=== PATIENT | female | born 1965 | race African-American/Black ===

== ENCOUNTER 2017-03-07 00:33 | Emergency (ER) | payer OTHER, SELFPAY ==
--- NOTE | 2017-03-07 07:48 | RAD ---
RIGHT SHOULDER THREE VIEWS: History: Fall, right shoulder pain. FINDINGS: No degenerative change in the acromioclavicular joint. No fracture, dislocation or bony destruction identified. POS: SAMANTHA
== END 2017-03-07 01:36 | disposition home or self-care (01) ==
LOC: ERS 00:33
DX: S40.011A Contusion of right shoulder, initial encounter (principal); I10 Essential (primary) hypertension; W19.XXXA Unspecified fall, initial encounter

== ENCOUNTER 2017-06-27 22:45 | Emergency (ER) | payer SELFPAY | END 2017-06-28 00:09 | disposition home or self-care (01) | LOC: ERS 22:45 | DX: R50.9 Fever, unspecified (principal); I10 Essential (primary) hypertension; Z79.899 Other long term (current) drug therapy | CPT/HCPCS: 99283 ==

== ENCOUNTER 2017-10-21 23:07 | Observation (INO) | payer SELFPAY ==
[2017-10-21 23:45] LABS: #Basophils 0.1 thou/uL (0.0-0.2); #Eosinphils 0.1 thou/uL (0.0-0.7); #Lymphocytes 2.7 thou/uL (1.20-3.40); #Monocytes 0.5 thou/uL (0.11-0.59); #Neutrophils 4.6 thou/uL (1.40-6.50); %Basophils 1.1 % (0.0-1.0); %Eosinophils 1.6 % (0.0-10.0); %Lymphocytes 33.9 % (21.0-51.0); %Monocytes 5.7 % (0.0-10.0); %Neutrophils 57.6 % (42.0-75.0); Hemoglobin 11.7 g/dL (12.0-16.0); Mean Corpuscular HGB CONC 33.5 g/dL (32.0-36.0); Mean Corpuscular Hemoglobin 28.2 pg (27.0-31.0); Mean Corpuscular Volume 84.1 fl (81.0-99.0); Platelet Count 346 thou/uL (130-400); RBC Distribution Width 13.7 % (11.5-14.5); Red Blood Cell (RBC) Count 4.15 mill/uL (4.20-5.40)
--- NOTE | 2017-10-21 23:47 | RAD ---
PORTABLE CHEST: Date: 10/21/17 PROVIDED CLINICAL HISTORY: Chest pain. FINDINGS: Comparison with 08/07/10. Cardiac silhouette appears enlarged. Lungs appear clear. No pleural fluid or pneumothorax apparent. IMPRESSION: Cardiomegaly without evidence for an acute cardiopulmonary process. POS: RAVEN
[2017-10-21 23:53] LABS: PTT 28.5 SEC (22.9-36.1); Prothrombin Time 13.6 SEC (12.0-14.7)
[2017-10-22 00:13] LABS: ALT (SGPT) 17 U/L (8-55); AST (SGOT) 14 U/L (5-34); Albumin 3.9 g/dL (3.5-5.0); Alkaline Phosphatase 88 U/L (40-150); Anion Gap 10 mmol/L (10-20); BUN (Urea Nitrogen) 15 mg/dL (7.0-18.7); Bilirubin, Total 0.3 mg/dL (0.2-1.2); CK (CPK) 154 U/L (29-168); Calc. Creatinine Clearance 0 mL/min (70-130); Calcium 9.1 mg/dL (7.8-10.44); Carbon Dioxide 29 mmol/L (22-29); Chloride 105 mmol/L (98-107); Estimated GFR-MDRD 62; Globulin 3.1 g/dL (2.4-3.5); Glucose 101 mg/dL (70-105); Potassium 4.1 mmol/L (3.5-5.1); Sodium 140 mmol/L (136-145)
[2017-10-22 00:16] LABS: CKMB 1.7 ng/mL (0-6.6); Troponin I Less than 0.010 ng/mL (< 0.028)
[2017-10-22] MEDS ORDERED: Nitroglycerin 2% Ointment 1 INCH/1 GM Packet ONE (02:54)
[2017-10-22 02:56] LABS: Troponin I Less than 0.010 ng/mL (< 0.028)
[2017-10-22] MEDS ORDERED: Nitroglycerin 0.4 MG TAB (25 Tab Bottle) PO PRN (05:42)
[2017-10-22] MEDS ORDERED: Acetaminophen 325 MG TAB PO PRN (05:42)
[2017-10-22 05:46] LABS: Troponin I Less than 0.010 ng/mL (< 0.028)
[2017-10-22 06:16] LABS: Cardiac Risk 4.4 (Less than 4.5)
[2017-10-22 06:25] VITALS: BMI 56.0
--- NOTE | 2017-10-22 06:27 | HP ---
REASON FOR ADMISSION: Chest pain. HISTORY OF PRESENTING ILLNESS: The patient gives history of chest tightness from last . She has also had associated left hand paraesthesias. This has been ongoing off and on with each episode lasting 2-3 minutes. These episodes usually come on with mild exertion at home. Last night, she had another episode which was getting worse and patient tried taking 3 nitroglycerin sublingual with no relief. She is also burping a lot and tried taking Pepto-Bismol and Tums. As none of this helped her, she came to emergency room. No prior cardiac workup. Patient also states that she has been putting on weight from last year and a half after she moved to this area. PAST MEDICAL AND SURGICAL HISTORY: Hypertension, morbid obesity, tubal ligation. PERSONAL HISTORY: Does not abuse drugs. Drinks on social occasions. Does not smoke. She lives alone and is . She does private sitter job. FAMILY HISTORY: Father of cirrhosis in his 40s. Mother is living but has history of hypertension, diabetes, and coronary artery disease. CODE STATUS: FULL. Power of workers compensation attorney is her daughter, Ms. Meza. CURRENT MEDICATIONS: Aspirin 81 mg p.o. daily, Lopressor 25 mg twice daily, lisinopril 20 mg daily. ALLERGIES: ULTRAM. REVIEW OF SYSTEMS: The following complete review of systems was negative, unless otherwise mentioned in the HPI or below: Constitutional: Weight loss or gain, ability to conduct usual activities. Skin: Rash, itching. Eyes: Double vision, pain. ENT/Mouth: Nose bleeding, neck stiffness, pain, tenderness. Cardiovascular: Palpitations, dyspnea on exertion, orthopnea. Respiratory: Shortness of breath, wheezing, cough, hemoptysis, fever or night sweats. Gastrointestinal: Poor appetite, abdominal pain, heartburn, nausea, vomiting, constipation, or diarrhea. Genitourinary: Urgency, frequency, dysuria, nocturia. Musculoskeletal: Pain, swelling. Neurologic/Psychiatric: Anxiety, depression. Allergy/Immunologic: Skin rash, bleeding tendency. PHYSICAL EXAMINATION: GENERAL: The patient is a 52-year-old female who is currently not in any acute distress. VITAL SIGNS: Blood pressure 180/96, pulse 94 per minute, respiratory rate 18 per minute, temperature 98.7 degrees Fahrenheit, and saturating 96% on room air. NECK: Supple, no elevated JVD. EYES: Extraocular muscles intact. Pupils reacting to light. ORAL CAVITY: Mucous membranes are dry. No exudates or congestion. CARDIOVASCULAR SYSTEM: S1, S2 heard. Regular rhythm. RESPIRATORY SYSTEM: Air entry 2+ bilateral. No rales or rhonchi. ABDOMEN: Soft, bowel sounds heard. No tenderness, rigidity or guarding. EXTREMITIES: No peripheral edema or calf tenderness. VASCULAR SYSTEM: Peripheral pulses 1+ bilateral, no ischemic ulcerations or gangrene. CENTRAL NERVOUS SYSTEM: No gross focal deficits seen. Patient is alert, awake , oriented x3. PSYCHIATRIC SYSTEM: The patient's mood is euthymic. No hallucinations or delusions. IMAGING DATA AND LABORATORY DATA: EKG done shows normal sinus rhythm at 89 beats per minute. There are signs of LVH seen. White count of 8, hemoglobin and hematocrit 11 and 34, platelet count 346, MCV is 84 with 57% neutrophils. PT/INR, PTT, electrolytes and liver function tests are within normal limits. BUN is 15, creatinine 1.1. Troponin x2 is negative. Albumin is 3.9. Chest x- ray done shows mild cardiomegaly with no acute infiltrate. CLINICAL IMPRESSION AND PLAN: The patient will be under observation on telemetry for chest pain, rule out acute coronary syndrome. The patient is morbidly obese and weighs around 300 pounds and likely will need 2 day stress test. We will continue her on full dose aspirin, Lopressor, Pepcid for now. She will be kept n.p.o. for the stress test. Echo with 2D Doppler for LV function will be obtained. The patient has to start doing lifestyle modification or has to undergo bariatric surgery to prevent further morbidity from her obesity. BETO
[2017-10-22] MEDS ORDERED: Nitroglycerin 0.4 MG TAB (25 Tab Bottle) SL PRN (08:33)
[2017-10-22 08:59] LABS: Troponin I Less than 0.010 ng/mL (< 0.028)
[2017-10-22] MEDS ORDERED: Aspirin 325 MG TAB PO SCH (09:00)
[2017-10-22] MEDS ORDERED: Lisinopril 20 MG TAB PO SCH (09:00)
[2017-10-22] MEDS ORDERED: Metoprolol Tartrate 25 MG TAB PO SCH (09:00)
[2017-10-22] MEDS ORDERED: Enoxaparin Sodium 40 MG/0.4 ML SYRINGE SC SCH (09:00)
[2017-10-22] MEDS ORDERED: Famotidine 20 MG TAB PO SCH (09:00)
[2017-10-22] MEDS ORDERED: Lorazepam 2 MG/ML VIAL SLOW IVP SCH (12:30)
[2017-10-22] MEDS ORDERED: Regadenoson 0.4 MG/5 ML SYRINGE ONE (12:53)
--- NOTE | 2017-10-22 14:10 | NM ---
STRESS ONLY NUCLEAR MEDICINE MYOCARDIAL PERFUSION SCAN: DATE: 09/22/17. HISTORY: A 52-year-old female with chest pain. TECHNIQUE: SPECT imaging of the left ventricular myocardium is obtained during stress following the intravenous administration of 33 mCi Technetium 99m labeled sestamibi. FINDINGS: Left ventricular wall motion is normal. No perfusion defect is seen on stress-only imaging. EDV is 102 mL, ESV is 47 mL, and ejection fraction is 54%. IMPRESSION: Unremarkable stress-only myocardial perfusion scan. POS: RAVEN
[2017-10-22 16:03] VITALS: BP 138/67; TEMP 97.5
--- NOTE | 2017-10-22 22:37 | DIS ---
DATE OF ADMISSION: 10/22/2017 DATE OF DISCHARGE: 10/22/2017 CONDITION AT THE TIME OF DISCHARGE: Stable and improved. DISCHARGE DIAGNOSES: 1. Chest pain, noncardiac. 2. Acute coronary syndrome ruled out. 3. Hypertension. 4. Morbid obesity with a BMI of 56. 5. Hypertension. DISCHARGE MEDICATIONS: Remain the same as admission medication including metoprolol succinate 25 p.o . b.i.d., lisinopril 20 mg daily, sublingual nitroglycerin as needed. The patient is instructed to h ave discussed Toprol-XL twice dosing with her primary care physician as it is normally once a day med icine. She is also instructed to not take nitroglycerin as her chest pain is likely noncardiac. PROCEDURES DURING THE HOSPITAL: Nuclear medicine stress test, which is negative for any reversible i schemia or infarction. Estimated EF of 54%. HISTORY OF PRESENT ILLNESS: Ms. Parker is a 52-year-old female with past medical history of hyperten erika, who presented to the emergency room with complaints of chest pain. EKG and troponins were tren ded and were unremarkable. She was admitted for further risk stratification. She was given aspirin and continued on Lopressor. Please see admission history and physical for further details. HOSPITAL COURSE: The patient remained hemodynamically stable throughout the rest of her hospitalizat ion and asymptomatic. She did not have any events on the tele monitoring. Cardiac enzymes are negat shantell x4. She had a slightly elevated cholesterol at 223 and lifestyle modification were advised. She underwent a nuclear medicine stress test, which was negative, so she was discharged. PHYSICAL EXAMINATION: She was seen and examined prior to discharge. This morning include, VITAL SIGNS: Temperature 98, pulse of 80, respirations 16, saturating 96% on room air, blood pressur e 133/71. GENERAL: No acute distress, awake, alert, oriented x3. She has loudly snoring in the room and was e asily awoken. CHEST: Clear to auscultation bilaterally without any wheezing, rales, or rhonchi. Rhythm is regular without any murmur, rubs or gallops. At this time, dietary and lifestyle modification has been advised and the patient seems receptive. S he will be discharged under the care of primary care physician.
== END 2017-10-22 16:16 | disposition home or self-care (01) ==
LOC: ERS 23:07 → 2SW 10-22 06:05
PROVIDERS: ADMIT Internal Medicine; ATTEND Internal Medicine
DX: R07.89 Other chest pain (principal); I10 Essential (primary) hypertension; E66.01 Morbid (severe) obesity due to excess calories; Z68.43 Body mass index [BMI] 50.0-59.9, adult; Z88.8 Allergy status to other drugs, medicaments and biological substances; Z79.82 Long term (current) use of aspirin; Z79.899 Other long term (current) drug therapy; Z98.890 Other specified postprocedural states; Z82.49 Family history of ischemic heart disease and other diseases of the circulatory system
CPT/HCPCS: 36415; 71045; 78452; 80053; 80061; 82550; 82553; 83880; 84484; 85025; 85610; 85730; 93005; 93017; 96374; A9500; G0378; J2060; J2785

== ENCOUNTER 2017-10-28 14:49 | Emergency (ER) | payer SELFPAY ==
[2017-10-28] MEDS ORDERED: Labetalol HCl 100 MG/20 ML VIAL ONE (15:06)
[2017-10-28 15:25] LABS: #Eosinphils 0.1 thou/uL (0.0-0.7); #Lymphocytes 1.8 thou/uL (1.20-3.40); #Monocytes 0.3 thou/uL (0.11-0.59); #Neutrophils 3.6 thou/uL (1.40-6.50); %Basophils 0.7 % (0.0-1.0); %Eosinophils 1.2 % (0.0-10.0); %Lymphocytes 31.1 % (21.0-51.0); %Neutrophils 62.1 % (42.0-75.0); Hemoglobin 12.2 g/dL (12.0-16.0); Mean Corpuscular Hemoglobin 27.8 pg (27.0-31.0); Mean Corpuscular Volume 84.5 fl (81.0-99.0); Platelet Count 350 thou/uL (130-400); RBC Distribution Width 13.6 % (11.5-14.5); Red Blood Cell (RBC) Count 4.37 mill/uL (4.20-5.40); White Blood Cell (WBC) Count 5.8 thou/uL (4.8-10.8)
[2017-10-28 15:52] LABS: ALT (SGPT) 21 U/L (8-55); AST (SGOT) 17 U/L (5-34); Albumin 4.2 g/dL (3.5-5.0); Alkaline Phosphatase 96 U/L (40-150); Anion Gap 14 mmol/L (10-20); BUN (Urea Nitrogen) 14 mg/dL (7.0-18.7); Bilirubin, Total 0.4 mg/dL (0.2-1.2); CK (CPK) 208 U/L (29-168); Calc. Creatinine Clearance 0 mL/min (70-130); Calcium 9.4 mg/dL (7.8-10.44); Carbon Dioxide 24 mmol/L (22-29); Chloride 104 mmol/L (98-107); Estimated GFR-MDRD 76; Globulin 3.5 g/dL (2.4-3.5); Glucose 113 mg/dL (70-105); Potassium 4.1 mmol/L (3.5-5.1); Protein, Total 7.7 g/dL (6.0-8.3); Sodium 138 mmol/L (136-145)
[2017-10-28 15:56] LABS: CKMB 2.4 ng/mL (0-6.6); Troponin I Less than 0.010 ng/mL (< 0.028)
[2017-10-28 18:19] LABS: Troponin I Less than 0.010 ng/mL (< 0.028)
== END 2017-10-28 18:36 | disposition home or self-care (01) ==
LOC: ERS 14:49
DX: R07.2 Precordial pain (principal); I10 Essential (primary) hypertension; Z79.899 Other long term (current) drug therapy
CPT/HCPCS: 36415; 80053; 82550; 82553; 84484; 85025; 85379; 93005; 96374

== ENCOUNTER 2018-10-08 02:52 | Observation (INO) | payer SELFPAY ==
[2018-10-08] MEDS ORDERED: Ondansetron ODT 4 MG TAB ONE (03:00)
[2018-10-08 03:21] LABS: #Basophils 0.1 thou/uL (0.0-0.2); #Eosinphils 0.2 thou/uL (0.0-0.7); #Lymphocytes 2.8 thou/uL (1.20-3.40); #Monocytes 0.4 thou/uL (0.11-0.59); #Neutrophils 3.6 thou/uL (1.40-6.50); %Basophils 1.2 % (0.0-1.0); %Eosinophils 2.5 % (0.0-10.0); %Lymphocytes 39.6 % (21.0-51.0); %Neutrophils 50.8 % (42.0-75.0); Hemoglobin 12.2 g/dL (12.0-16.0); Mean Corpuscular HGB CONC 32.2 g/dL (32.0-36.0); Mean Corpuscular Hemoglobin 27.7 pg (27.0-31.0); Mean Corpuscular Volume 86.1 fL (78.0-98.0); Mean Platelet Volume 7.6 fL (7.4-10.4); Platelet Count 276 thou/uL (130-400); RBC Distribution Width 13.6 % (11.5-14.5); Red Blood Cell (RBC) Count 4.42 mill/uL (4.20-5.40)
[2018-10-08] MEDS ORDERED: Nitroglycerin 2% Ointment 1 INCH/1 GM Packet ONE ×2 (03:30→03:33)
[2018-10-08] MEDS ORDERED: Aspirin Chewable 81 MG TAB ONE (03:33)
[2018-10-08 03:40] LABS: ALT (SGPT) 14 U/L (8-55); AST (SGOT) 15 U/L (5-34); Albumin 4.2 g/dL (3.5-5.0); Alkaline Phosphatase 96 U/L (40-150); Anion Gap 12 mmol/L (10-20); BUN (Urea Nitrogen) 14 mg/dL (9.8-20.1); Bilirubin, Total 0.3 mg/dL (0.2-1.2); Calc. Creatinine Clearance 0 mL/min (70-130); Calcium 9.5 mg/dL (7.8-10.44); Carbon Dioxide 29 mmol/L (22-29); Chloride 103 mmol/L (98-107); Estimated GFR-MDRD 76; Glucose 110 mg/dL (70-105); Protein, Total 7.2 g/dL (6.0-8.3); Sodium 140 mmol/L (136-145)
--- NOTE | 2018-10-08 04:10 | RAD ---
XR Chest 1 View Portable HISTORY: Chest pain COMPARISON: 10/21/2017 study FINDINGS: Heart size is slightly enlarged. Mediastinal structures are unremarkable. The lungs are hansa ar of infiltrates. There are no signs of failure. IMPRESSION: Mild cardiomegaly.
[2018-10-08 04:28] LABS: CK (CPK) 217 U/L (29-168); Lipase 96 U/L (8-78)
[2018-10-08 05:52] VITALS: BMI 53.5
[2018-10-08 07:41] LABS: Troponin I Less than 0.010 ng/mL (< 0.028)
[2018-10-08] MEDS ORDERED: Regadenoson 0.4 MG/5 ML SYRINGE ONE (10:20)
[2018-10-08] MEDS ORDERED: Acetaminophen 325 MG TAB PO PRN (10:25)
[2018-10-08] MEDS ORDERED: Lorazepam 2 MG/ML VIAL SLOW IVP SCH (11:15)
[2018-10-08] MEDS ORDERED: Lorazepam 2 MG/ML VIAL ONE (11:22)
[2018-10-08 13:22] LABS: Troponin I Less than 0.010 ng/mL (< 0.028)
--- NOTE | 2018-10-08 14:40 | NM ---
Radionucleotide stress only myocardial perfusion scan with CT attenuation correction and SPECT imagin g Left ventricular wall motion evaluation and ejection fraction HISTORY: Chest pain. FINDINGS: Lexiscan protocol. There is homogeneous uptake of radiotracer throughout the left ventricul ar myocardium. No perfusion defects apparent. QGS analysis of gated SPECT images shows no focal wall motion abnormalities. Left ventricular ejectio n fraction calculated at 74%. IMPRESSION: Normal myocardial perfusion stress only exam. Normal LVEF.
[2018-10-08 16:11] VITALS: BP 129/74; TEMP 98.1
[2018-10-08] MEDS ORDERED: Famotidine 20 MG TAB PO SCH (21:00)
--- NOTE | 2018-10-09 02:32 | SS ---
DATE OF ADMISSION: 10/08/2018 DATE OF DISCHARGE: 10/08/2018 PRIMARY CARE PHYSICIAN: Dr. Duncan. CONSULTANTS: None. PROCEDURES: The patient had a chest x-ray which showed mild cardiomegaly. The patient also had stress test with nuclear medicine which showed normal myocardial perfusion with ejection fraction calculated at 74%. HOSPITAL COURSE: Ms. Parker is a 53-year-old female who presented to the emergency room for left upper chest and left arm pain, started several days ago after she was doing some heavy lifting and moving furniture around. The patient presented to the emergency room on 10/07/2018, because the pain had not subsided even though she stopped lifting any items. Pain is reproducible with palpation to upper left chest and left biceps. The patient's initial troponin was undetectable. CK 217. EKG showed normal sinus rhythm, beats per minute 86, conduction normal, ST segments normal, T-waves normal, axis is normal. The patient was admitted to the observation unit where she underwent a stress test, findings above. The patient also had 3 negative undetectable troponins. The patient is feeling better. The patient was subsequently discharged home with instructions to follow up with primary care within the next week. PAST MEDICAL HISTORY: Hypertension and angina. PAST SURGICAL HISTORY: Tubal ligation. PSYCH HISTORY: None. SOCIAL HISTORY: Drinks socially once a month. Lives at home. Denies any drug use. Denies any smoking history. FAMILY HISTORY: Reports there is some family history of cardiac disease. KNOWN ALLERGIES: Tramadol. CURRENT MEDICATIONS: 1. Zestril 20 mg p.o. daily. 2. Toprol-XL 25 mg p.o. b.i.d. 3. Nitrostat 0.4 mg sublingual q.5 minutes for chest pain p.r.n. REVIEW OF SYSTEMS: The patient was examined prior to discharge, reports that chest pain has improved, still primarily upper chest, left chest, and left biceps. Denied any palpitations, shortness of breath, abdominal pain, nausea, vomiting, or diarrhea. All other symptoms are reviewed and are negative unless mentioned in the HPI. PHYSICAL EXAMINATION: VITAL SIGNS: Temperature is 98.1, pulse is 80, respirations 18, pO2 sats are 97% on room air, blood pressure is 129/74. CONSTITUTIONAL: The patient appears pain free, is alert and oriented to person, place, and time. HEENT: Head is atraumatic and normocephalic. Eyes; eyelids are normal to inspection. Extraocular muscles are intact. ENT; mouth exam is normal. Mucous membranes are moist. NECK: Normal range of motion. Trachea is midline. RESPIRATORY: Breath sounds are clear. No findings of any respiratory distress. CARDIOVASCULAR: Regular heart rate and rhythm. Heart sounds are normal. ABDOMEN: Soft and nontender. Bowel sounds are heard. EXTREMITIES: Upper extremities; inspection is normal. Motor strength is normal. Sensation intact. Radial pulses are equal bilaterally. Lower extremities; sensation intact. Inspection is normal. Motor strength is normal. No calf tenderness is noted. No edema is noted. Pedal pulses are equal bilaterally. NEUROLOGIC: The patient is oriented to person, place, and time. Speech is normal. SKIN: Warm, dry, normal in color. DISPOSITION: Home. DISPOSITION CONDITION: Stable. REFERRAL: The patient was requested to follow up with Dr. Duncan within the next week. Job ID: [id number]
[2018-10-09] MEDS ORDERED: Enoxaparin Sodium 40 MG/0.4 ML SYRINGE SC SCH (09:00)
== END 2018-10-08 17:50 | disposition home or self-care (01) ==
LOC: ERS 02:52 → 2SW 05:35
PROVIDERS: ADMIT Hospitalist; ATTEND Hospitalist
DX: R07.9 Chest pain, unspecified (principal); M79.18 Myalgia, other site; I11.9 Hypertensive heart disease without heart failure; Z79.899 Other long term (current) drug therapy; Z88.5 Allergy status to narcotic agent
CPT/HCPCS: 36415; 71045; 78452; 80053; 82550; 83690; 83880; 84484; 85025; 93005; 93017; 96360; 96361; 96374; A9500; G0378; J2060; J2785; Q0162

== ENCOUNTER 2021-02-13 14:16 | Inpatient (IN) | payer OTHER, SELFPAY ==
[~2021-02-13 14:16] MED LIST: Iopamidol-370 76% 500 ML 1 ML ONE
[2021-02-13 15:03] LABS: #Lymphocytes 1.1 thou/uL (1.20-3.40); #Monocytes 0.3 thou/uL (0.11-0.59); #Neutrophils 6.5 thou/uL (1.40-6.50); %Eosinophils 0.4 % (0.0-10.0); %Monocytes 3.5 % (0.0-10.0); %Neutrophils 82.1 % (42.0-75.0); Hemoglobin 13.2 g/dL (12.0-16.0); Mean Corpuscular HGB CONC 32.6 g/dL (32.0-36.0); Mean Corpuscular Hemoglobin 28.3 pg (27.0-31.0); Mean Corpuscular Volume 86.8 fL (78.0-98.0); Mean Platelet Volume 7.7 fL (7.4-10.4); Platelet Count 318 thou/uL (130-400); RBC Distribution Width 13.3 % (11.5-14.5); Red Blood Cell (RBC) Count 4.67 mill/uL (4.20-5.40); White Blood Cell (WBC) Count 7.9 thou/uL (4.8-10.8)
[2021-02-13] MEDS ORDERED: Acetaminophen 500 MG TAB ONE (15:27)
[2021-02-13] MEDS ORDERED: Dexamethasone 10 MG/ML VIAL ONE (15:27)
[2021-02-13 15:30] LABS: ALT (SGPT) 95 U/L (8-55); AST (SGOT) 63 U/L (5-34); Albumin 3.7 g/dL (3.5-5.0); Alkaline Phosphatase 60 U/L (40-110); Anion Gap 17 mmol/L (10-20); BUN (Urea Nitrogen) 22 mg/dL (9.8-20.1); Calc. Creatinine Clearance 0 mL/min (70-130); Calcium 8.9 mg/dL (7.8-10.44); Carbon Dioxide 25 mmol/L (22-29); Chloride 96 mmol/L (98-107); Globulin 3.7 g/dL (2.4-3.5); Glucose 128 mg/dL (70-105); Potassium 4.2 mmol/L (3.5-5.1); Protein, Total 7.4 g/dL (6.0-8.3); Sodium 134 mmol/L (136-145)
[2021-02-13] MEDS ORDERED: Albuterol Sulfate 2.5 mg/0.5 ml Neb ONE (16:17)
[2021-02-13] MEDS ORDERED: Aspirin Chewable 81 MG TAB ONE (18:56)
[2021-02-13] MEDS ORDERED: Electrolyte Replacement Protocol 1 EACH FS PRN (19:15)
[2021-02-13 20:02] LABS: Magnesium 2.3 mg/dL (1.6-2.6)
[2021-02-13] MEDS ORDERED: Ondansetron PF 4 MG/2 ML Vial IVP PRN (20:20)
[2021-02-13] MEDS ORDERED: Albuterol Sulfate 2.5 mg/3 ml Neb EZPAP PRN (20:23)
[2021-02-13] MEDS ORDERED: Azithromycin 500 MG in Sodium Chloride 0.9% 250 ML 250 ML IVPB SCH (21:00)
[2021-02-13] MEDS: Enoxaparin Sodium 40 MG/0.4 ML SYRINGE SC SCH (22:07)
[2021-02-13] MEDS: cefTRIAXone\\ROCEPHIN 1 GM in Sodium Chloride 0.9% 100 ML IVPB SCH (22:08)
[2021-02-13 23:16] LABS: Troponin I Less than 0.010 ng/mL (< 0.028)
[2021-02-13] MEDS: Azithromycin 500 MG in Sodium Chloride 0.9% 250 ML 250 ML IVPB SCH (23:53)
[2021-02-14 04:50] VITALS: BMI 48.6
[2021-02-14 04:59] LABS: #Lymphocytes 0.8 thou/uL (1.20-3.40); #Monocytes 0.2 thou/uL (0.11-0.59); #Neutrophils 4.5 thou/uL (1.40-6.50); %Basophils 0.5 % (0.0-1.0); %Eosinophils 0.2 % (0.0-10.0); %Lymphocytes 13.7 % (21.0-51.0); %Monocytes 4.2 % (0.0-10.0); %Neutrophils 81.5 % (42.0-75.0); Hemoglobin 12.2 g/dL (12.0-16.0); Mean Corpuscular HGB CONC 32.4 g/dL (32.0-36.0); Mean Corpuscular Hemoglobin 28.3 pg (27.0-31.0); Mean Corpuscular Volume 87.3 fL (78.0-98.0); Mean Platelet Volume 7.9 fL (7.4-10.4); Platelet Count 271 thou/uL (130-400); RBC Distribution Width 13.3 % (11.5-14.5); Red Blood Cell (RBC) Count 4.31 mill/uL (4.20-5.40); White Blood Cell (WBC) Count 5.6 thou/uL (4.8-10.8)
[2021-02-14 05:19] LABS: Anion Gap 14 mmol/L (10-20); BUN (Urea Nitrogen) 20 mg/dL (9.8-20.1); Calc. Creatinine Clearance 136 mL/min (70-130); Calcium 8.7 mg/dL (7.8-10.44); Carbon Dioxide 28 mmol/L (22-29); Chloride 101 mmol/L (98-107); Glucose 160 mg/dL (70-105); Potassium 4.5 mmol/L (3.5-5.1); Sodium 138 mmol/L (136-145)
[2021-02-14] MEDS: Dexamethasone 4 mg/ml Vial SLOW IVP SCH ×2 (08:26→20:56)
[2021-02-14] MEDS: cefTRIAXone\\ROCEPHIN 1 GM in Sodium Chloride 0.9% 100 ML IVPB SCH (20:55)
[2021-02-14] MEDS: Enoxaparin Sodium 40 MG/0.4 ML SYRINGE SC SCH (20:56)
[2021-02-14] MEDS: Azithromycin 500 MG in Sodium Chloride 0.9% 250 ML 250 ML IVPB SCH (22:26)
[2021-02-15] MEDS: Acetaminophen 325 MG TAB PO PRN (08:00)
[2021-02-15] MEDS: Dexamethasone 4 mg/ml Vial SLOW IVP SCH ×2 (08:00→20:01)
[2021-02-15] MEDS: Enoxaparin Sodium 40 MG/0.4 ML SYRINGE SC SCH (20:01)
[2021-02-15] MEDS: cefTRIAXone\\ROCEPHIN 1 GM in Sodium Chloride 0.9% 100 ML IVPB SCH (21:00)
[2021-02-15] MEDS: Azithromycin 500 MG in Sodium Chloride 0.9% 250 ML 250 ML IVPB SCH (21:54)
[2021-02-16] MEDS: Acetaminophen 325 MG TAB PO PRN (06:16)
[2021-02-16] MEDS: Dexamethasone 4 mg/ml Vial SLOW IVP SCH (08:13)
[2021-02-16 11:01] LABS: Hemoglobin 13.6 g/dL (12.0-16.0); Mean Corpuscular HGB CONC 32.5 g/dL (32.0-36.0); Mean Corpuscular Hemoglobin 28.3 pg (27.0-31.0); Mean Corpuscular Volume 87.1 fL (78.0-98.0); Mean Platelet Volume 7.6 fL (7.4-10.4); Platelet Count 402 thou/uL (130-400); RBC Distribution Width 13.5 % (11.5-14.5); Red Blood Cell (RBC) Count 4.81 mill/uL (4.20-5.40); White Blood Cell (WBC) Count 11.4 thou/uL (4.8-10.8)
[2021-02-16 12:29] VITALS: TEMP 98.1
[2021-02-16] MEDS ORDERED: Lisinopril 20 MG TAB PO SCH (14:40)
[2021-02-16] MEDS ORDERED: Cefdinir 300 MG CAP PO SCH (14:42)
[2021-02-16 16:35] VITALS: BP 152/83
== END 2021-02-16 16:15 | disposition home or self-care (01) | DRG 177 ==
LOC: ERS 14:16 → 2SW 19:26 → OBSVTOIN 02-14 14:24
PROVIDERS: ADMIT Student in an Organized Health Care Education/Training Program; ATTEND Internal Medicine
PROC: 3E0333Z Introduction of Anti-inflammatory into Peripheral Vein, Percutaneous Approach (ICD-10-PCS; principal; 2021-02-14)
PROC: 8E0ZXY6 Isolation (ICD-10-PCS; 2021-02-14)
DX: U07.1 COVID-19 (principal); J12.82 Pneumonia due to coronavirus disease 2019; J96.01 Acute respiratory failure with hypoxia; N17.9 Acute kidney failure, unspecified; E66.01 Morbid (severe) obesity due to excess calories; I10 Essential (primary) hypertension; Z68.42 Body mass index [BMI] 45.0-49.9, adult; Z28.21 Immunization not carried out because of patient refusal; Z88.5 Allergy status to narcotic agent; Z79.899 Other long term (current) drug therapy; Z98.51 Tubal ligation status
CPT/HCPCS: 36415; 71045; 71275; 80048; 80053; 82728; 83735; 84484; 85025; 85027; 85379; 86140; 87040; 90471; 90732; 93005; 96365; 96367; 96372; 96374; 96375; 96376; G0009; G0378; J0456; J0696; J1100; J1650; J3490; J7050; J7611; Q9967

== ENCOUNTER 2021-02-20 10:52 | Inpatient (IN) | payer SELFPAY ==
[2021-02-20] MEDS ORDERED: Iopamidol-370 76% 500 ML 1 ML ONE (11:09)
[2021-02-20] MEDS ORDERED: methylPREDNISolone Sod Succ/PF 125 MG/2 ML VIAL ONE (11:18)
[2021-02-20 11:31] LABS: Hemoglobin 13.4 g/dL (12.0-16.0); Mean Corpuscular Volume 87.2 fL (78.0-98.0); Mean Platelet Volume 7.6 fL (7.4-10.4); Platelet Count 227 thou/uL (130-400); Red Blood Cell (RBC) Count 4.97 mill/uL (4.20-5.40); White Blood Cell (WBC) Count 19.6 thou/uL (4.8-10.8)
[2021-02-20 11:59] LABS: ALT (SGPT) 106 U/L (8-55); AST (SGOT) 47 U/L (5-34); Albumin 3.3 g/dL (3.5-5.0); Alkaline Phosphatase 114 U/L (40-110); Anion Gap 17 mmol/L (10-20); BUN (Urea Nitrogen) 19 mg/dL (9.8-20.1); Bilirubin, Total 1.1 mg/dL (0.2-1.2); Calc. Creatinine Clearance 0 mL/min (70-130); Carbon Dioxide 22 mmol/L (22-29); Chloride 105 mmol/L (98-107); Globulin 3.8 g/dL (2.4-3.5); Glucose 190 mg/dL (70-105); Lymphocytes 11 % (21-51); MDiff Complete? YES; Monocytes 3 % (0-10); Neutrophil 86 % (42-75); Platelet Morphology Comment Appears Adequate; Potassium 4.7 mmol/L (3.5-5.1); Protein, Total 7.1 g/dL (6.0-8.3); RBC Morphology Normal; Sodium 139 mmol/L (136-145)
[2021-02-20 12:21] LABS: pH, Arterial 7.47 (7.35-7.45)
[2021-02-20 12:22] LABS: Actual Bicarbonate (HCO3a) 19.3 mEq/L (22-28); Analyzer IN Cardio ER; Base Excess (BEa) -2.8 mEq/L (-2.0 to +3.0); Carboxyhemoglobin (COHb) 0.1 gm% (0.0-3.0); Hemoglobin (Hb) 13.8 g/dL (12.0-16.0); O2 Tension (PaO2), arterial 61.8 mmHg (80.0-100.0); Potassium - ABG Lab 4.39 mmol/L (3.70-5.30)
[2021-02-20 12:29] LABS: INR-International Normal Ratio 1.5; PTT 29.4 sec (22.9-36.1); Prothrombin Time 17.8 sec (12.0-14.7)
[2021-02-20 12:29] LABS: Puncture Site RRA
[2021-02-20] MEDS ORDERED: Enoxaparin Sodium 30 MG/0.3 ML SYRINGE ONE ×2 (13:25→13:26)
[2021-02-20] MEDS ORDERED: Enoxaparin Sodium 80 MG/0.8 ML SYRINGE ONE (13:25)
[2021-02-20 14:33] LABS: CKMB 4.8 ng/mL (0-6.6)
[2021-02-20] MEDS ORDERED: Acetaminophen 650 MG Suppository PR PRN (14:46)
[2021-02-20] MEDS ORDERED: Guaifenesin DM 100-10/5 ML UDCUP PO PRN (14:46)
[2021-02-20] MEDS ORDERED: Communication Order-Pharmacy FS PRN (14:48)
[2021-02-20] MEDS ORDERED: Cefepime 2 GM VIAL ONE (15:10)
[2021-02-20 15:27] LABS: Lactic Acid 1.4 mmol/L (0.5-2.2)
[2021-02-20 15:31] LABS: CRP (Inflammatory) 26.32 mg/dL (= or < 0.5); Magnesium 1.9 mg/dL (1.6-2.6)
[2021-02-20] MEDS ORDERED: Vancomycin 1 GM/200 ML BAG ONE (15:50)
[2021-02-20] MEDS ORDERED: Aspirin 325 mg Enteric Coated Tablet PO SCH (16:15)
[2021-02-20] MEDS ORDERED: Aspirin 325 MG TAB ONE (16:47)
[2021-02-20 17:42] LABS: CKMB 4.1 ng/mL (0-6.6)
[2021-02-20 20:03] LABS: Critical Call Chem Troponin I RESULT DECREASING
[2021-02-21] MEDS: Enoxaparin Sodium 30 MG/0.3 ML SYRINGE SC SCH ×3 (01:32→20:27)
[2021-02-21] MEDS: Enoxaparin Sodium 100 MG/ML SYRINGE SC SCH ×3 (01:32→20:27)
[2021-02-21] MEDS: Dexamethasone 10 MG/ML VIAL SLOW IVP SCH ×3 (01:33→20:27)
[2021-02-21] MEDS: Acetaminophen 325 MG TAB PO PRN ×3 (01:54→22:02)
[2021-02-21 04:50] LABS: Anion Gap 16 mmol/L (10-20); BUN (Urea Nitrogen) 32 mg/dL (9.8-20.1); CRP (Inflammatory) 21.59 mg/dL (= or < 0.5); Calc. Creatinine Clearance 104 mL/min (70-130); Calcium 8.8 mg/dL (7.8-10.44); Carbon Dioxide 21 mmol/L (22-29); Chloride 106 mmol/L (98-107); Glucose 205 mg/dL (70-105); Potassium 5.3 mmol/L (3.5-5.1); Sodium 138 mmol/L (136-145)
[2021-02-21 05:23] LABS: Band 1 % (5-11); Hemoglobin 12.9 g/dL (12.0-16.0); Lymphocytes 9 % (21-51); MDiff Complete? YES; Mean Corpuscular HGB CONC 33.6 g/dL (32.0-36.0); Mean Corpuscular Hemoglobin 29.3 pg (27.0-31.0); Mean Corpuscular Volume 87.2 fL (78.0-98.0); Mean Platelet Volume 8.1 fL (7.4-10.4); Monocytes 1 % (0-10); Neutrophil 88 % (42-75); Platelet Count 186 thou/uL (130-400); Platelet Morphology Comment Appears Adequate; RBC Distribution Width 14.1 % (11.5-14.5); RBC Morphology Normal; Reactive Lymphocytes 1 % (0-10)
[2021-02-21] MEDS: Aspirin 81 mg Enteric Coated Tablet PO SCH (09:33)
[2021-02-21] MEDS: Sodium Chloride 0.45% 1,000 ML IV SCH (18:50)
[2021-02-21] MEDS: Pantoprazole 40 MG VIAL IVP SCH (20:28)
[2021-02-21] MEDS: Metoprolol Tartrate 25 MG TAB PO SCH (20:28)
[2021-02-22 04:33] LABS: Anion Gap 18 mmol/L (10-20); BUN (Urea Nitrogen) 35 mg/dL (9.8-20.1); CRP (Inflammatory) 12.26 mg/dL (= or < 0.5); Calc. Creatinine Clearance 113 mL/min (70-130); Calcium 8.9 mg/dL (7.8-10.44); Carbon Dioxide 21 mmol/L (22-29); Chloride 107 mmol/L (98-107); Glucose 213 mg/dL (70-105); Potassium 5.5 mmol/L (3.5-5.1); Sodium 140 mmol/L (136-145)
[2021-02-22 04:37] LABS: ALT (SGPT) 295 U/L (8-55); AST (SGOT) 102 U/L (5-34); Albumin 3.4 g/dL (3.5-5.0); Alkaline Phosphatase 112 U/L (40-110); Anion Gap 15 mmol/L (10-20); BUN (Urea Nitrogen) 35 mg/dL (9.8-20.1); Bilirubin, Total 0.7 mg/dL (0.2-1.2); Calc. Creatinine Clearance 106 mL/min (70-130); Calcium 9.1 mg/dL (7.8-10.44); Carbon Dioxide 23 mmol/L (22-29); Chloride 106 mmol/L (98-107); Globulin 3.5 g/dL (2.4-3.5); Glucose 219 mg/dL (70-105); Protein, Total 6.9 g/dL (6.0-8.3); Sodium 139 mmol/L (136-145)
[2021-02-22 04:46] LABS: Hemoglobin 13.6 g/dL (12.0-16.0); Lymphocytes 10 % (21-51); MDiff Complete? YES; Mean Corpuscular HGB CONC 31.1 g/dL (32.0-36.0); Mean Corpuscular Hemoglobin 27.4 pg (27.0-31.0); Mean Corpuscular Volume 88.3 fL (78.0-98.0); Monocytes 5 % (0-10); Neutrophil 85 % (42-75); Platelet Count 243 thou/uL (130-400); Platelet Morphology Comment Appears Adequate; RBC Distribution Width 14.4 % (11.5-14.5); RBC Morphology Normal; Red Blood Cell (RBC) Count 4.94 mill/uL (4.20-5.40)
[2021-02-22] MEDS: Metoprolol Tartrate 25 MG TAB PO SCH ×2 (09:34→21:01)
[2021-02-22] MEDS: Aspirin 81 mg Enteric Coated Tablet PO SCH (09:34)
[2021-02-22] MEDS: Dexamethasone 10 MG/ML VIAL SLOW IVP SCH ×2 (09:35→21:02)
[2021-02-22] MEDS: Sodium Chloride 0.45% 1,000 ML IV SCH ×2 (09:36→21:12)
[2021-02-22] MEDS: Enoxaparin Sodium 30 MG/0.3 ML SYRINGE SC SCH ×2 (09:36→21:01)
[2021-02-22] MEDS: Enoxaparin Sodium 100 MG/ML SYRINGE SC SCH ×2 (09:36→21:01)
[2021-02-22] MEDS: Pantoprazole 40 MG VIAL IVP SCH ×2 (09:36→21:02)
[2021-02-23] MEDS: Acetaminophen 325 MG TAB PO PRN ×2 (03:14→20:51)
[2021-02-23 04:38] LABS: #Monocytes 0.3 thou/uL (0.11-0.59); #Neutrophils 11.5 thou/uL (1.40-6.50); %Lymphocytes 7.8 % (21.0-51.0); %Monocytes 2.1 % (0.0-10.0); Hemoglobin 12.9 g/dL (12.0-16.0); Mean Corpuscular HGB CONC 31.3 g/dL (32.0-36.0); Mean Corpuscular Hemoglobin 27.8 pg (27.0-31.0); Mean Corpuscular Volume 88.9 fL (78.0-98.0); Mean Platelet Volume 8.3 fL (7.4-10.4); Platelet Count 220 thou/uL (130-400); RBC Distribution Width 14.2 % (11.5-14.5); Red Blood Cell (RBC) Count 4.64 mill/uL (4.20-5.40); White Blood Cell (WBC) Count 12.8 thou/uL (4.8-10.8)
[2021-02-23 04:59] LABS: Anion Gap 13 mmol/L (10-20); BUN (Urea Nitrogen) 30 mg/dL (9.8-20.1); CRP (Inflammatory) 5.86 mg/dL (= or < 0.5); Calc. Creatinine Clearance 138 mL/min (70-130); Calcium 8.6 mg/dL (7.8-10.44); Carbon Dioxide 23 mmol/L (22-29); Chloride 105 mmol/L (98-107); Glucose 232 mg/dL (70-105); Potassium 5.3 mmol/L (3.5-5.1); Sodium 136 mmol/L (136-145)
[2021-02-23] MEDS: Aspirin 81 mg Enteric Coated Tablet PO SCH (09:30)
[2021-02-23] MEDS: Metoprolol Tartrate 25 MG TAB PO SCH ×2 (09:35→20:51)
[2021-02-23] MEDS: Pantoprazole 40 MG VIAL IVP SCH ×2 (09:35→20:51)
[2021-02-23] MEDS: Sodium Chloride 0.45% 1,000 ML IV SCH (09:35)
[2021-02-23] MEDS: Enoxaparin Sodium 30 MG/0.3 ML SYRINGE SC SCH ×2 (09:35→20:50)
[2021-02-23] MEDS: Enoxaparin Sodium 100 MG/ML SYRINGE SC SCH ×2 (09:35→20:50)
[2021-02-23] MEDS: Dexamethasone 10 MG/ML VIAL SLOW IVP SCH ×2 (09:35→20:50)
[2021-02-24] MEDS: Sodium Chloride 0.45% 1,000 ML IV SCH ×3 (02:34→19:35)
[2021-02-24 03:59] LABS: #Eosinphils 0.1 thou/uL (0.0-0.7); #Lymphocytes 0.6 thou/uL (1.20-3.40); #Monocytes 0.3 thou/uL (0.11-0.59); #Neutrophils 9.5 thou/uL (1.40-6.50); %Basophils 0.1 % (0.0-1.0); %Eosinophils 0.9 % (0.0-10.0); %Lymphocytes 5.5 % (21.0-51.0); %Monocytes 2.8 % (0.0-10.0); %Neutrophils 90.7 % (42.0-75.0); Hemoglobin 12.2 g/dL (12.0-16.0); Mean Corpuscular HGB CONC 32.1 g/dL (32.0-36.0); Mean Corpuscular Hemoglobin 28.2 pg (27.0-31.0); Mean Corpuscular Volume 87.9 fL (78.0-98.0); Mean Platelet Volume 8.4 fL (7.4-10.4); Platelet Count 205 thou/uL (130-400); Red Blood Cell (RBC) Count 4.33 mill/uL (4.20-5.40); White Blood Cell (WBC) Count 10.4 thou/uL (4.8-10.8)
[2021-02-24 04:24] LABS: Anion Gap 13 mmol/L (10-20); BUN (Urea Nitrogen) 29 mg/dL (9.8-20.1); CRP (Inflammatory) 3.26 mg/dL (= or < 0.5); Calc. Creatinine Clearance 137 mL/min (70-130); Calcium 8.5 mg/dL (7.8-10.44); Carbon Dioxide 23 mmol/L (22-29); Chloride 104 mmol/L (98-107); Glucose 329 mg/dL (70-105); Potassium 5.2 mmol/L (3.5-5.1); Sodium 135 mmol/L (136-145)
[2021-02-24] MEDS: Enoxaparin Sodium 30 MG/0.3 ML SYRINGE SC SCH (08:51)
[2021-02-24] MEDS: Enoxaparin Sodium 100 MG/ML SYRINGE SC SCH (08:51)
[2021-02-24] MEDS: Dexamethasone 10 MG/ML VIAL SLOW IVP SCH ×2 (08:52→22:20)
[2021-02-24] MEDS: Metoprolol Tartrate 25 MG TAB PO SCH (08:52)
[2021-02-24] MEDS: Aspirin 81 mg Enteric Coated Tablet PO SCH (08:52)
[2021-02-24] MEDS: Pantoprazole 40 MG VIAL IVP SCH ×2 (08:52→22:20)
[2021-02-24] MEDS ORDERED: NIFEdipine XL 60 MG TAB PO SCH (16:15)
[2021-02-24] MEDS ORDERED: Metoprolol Tartrate 50 MG TAB PO SCH (21:00)
[2021-02-24] MEDS: NIFEdipine XL 60 MG TAB PO SCH (22:20)
[2021-02-24] MEDS: Apixaban 5 MG TAB PO SCH (22:20)
[2021-02-24] MEDS: Acetaminophen 325 MG TAB PO PRN (22:51)
[2021-02-25 05:43] LABS: Anion Gap 15 mmol/L (10-20); BUN (Urea Nitrogen) 24 mg/dL (9.8-20.1); Calc. Creatinine Clearance 154 mL/min (70-130); Calcium 8.7 mg/dL (7.8-10.44); Carbon Dioxide 22 mmol/L (22-29); Chloride 104 mmol/L (98-107); Glucose 292 mg/dL (70-105); Potassium 5.1 mmol/L (3.5-5.1); Sodium 136 mmol/L (136-145)
[2021-02-25 08:30] LABS: #Lymphocytes 0.7 thou/uL (1.20-3.40); #Monocytes 0.3 thou/uL (0.11-0.59); #Neutrophils 11.7 thou/uL (1.40-6.50); %Basophils 0.1 % (0.0-1.0); %Eosinophils 0.1 % (0.0-10.0); %Lymphocytes 5.8 % (21.0-51.0); %Monocytes 2.6 % (0.0-10.0); %Neutrophils 91.4 % (42.0-75.0); Hemoglobin 12.8 g/dL (12.0-16.0); Mean Corpuscular HGB CONC 31.9 g/dL (32.0-36.0); Mean Corpuscular Hemoglobin 28.1 pg (27.0-31.0); Mean Corpuscular Volume 88.1 fL (78.0-98.0); Mean Platelet Volume 9.1 fL (7.4-10.4); Platelet Count 255 thou/uL (130-400); RBC Distribution Width 14.1 % (11.5-14.5); Red Blood Cell (RBC) Count 4.54 mill/uL (4.20-5.40); White Blood Cell (WBC) Count 12.8 thou/uL (4.8-10.8)
[2021-02-25] MEDS ORDERED: Apixaban 5 MG TAB PO SCH (08:45)
[2021-02-25] MEDS: Apixaban 5 MG TAB PO SCH ×2 (08:52→20:54)
[2021-02-25] MEDS: Aspirin 81 mg Enteric Coated Tablet PO SCH (08:53)
[2021-02-25] MEDS: NIFEdipine XL 60 MG TAB PO SCH ×2 (08:53→20:55)
[2021-02-25] MEDS: Dexamethasone 10 MG/ML VIAL SLOW IVP SCH (08:53)
[2021-02-25] MEDS: Pantoprazole 40 MG VIAL IVP SCH ×2 (08:55→20:55)
[2021-02-25] MEDS: Sodium Chloride 0.45% 1,000 ML IV SCH (14:50)
[2021-02-25] MEDS ORDERED: Dextrose 50% Abboject 50 ML SYRINGE SLOW IVP PRN (16:20)
[2021-02-25] MEDS ORDERED: Dextrose 5% in Water 1,000 ML IV PRN (16:20)
[2021-02-25] MEDS: Insulin Regular 300 UNITS/3 ML VIAL SC PRN (18:47)
[2021-02-25] MEDS: Acetaminophen 325 MG TAB PO PRN (20:55)
[2021-02-26 05:23] LABS: #Eosinphils 0.1 thou/uL (0.0-0.7); #Lymphocytes 1.7 thou/uL (1.20-3.40); #Monocytes 0.3 thou/uL (0.11-0.59); #Neutrophils 11.7 thou/uL (1.40-6.50); %Basophils 0.3 % (0.0-1.0); %Eosinophils 0.6 % (0.0-10.0); %Lymphocytes 12.3 % (21.0-51.0); %Neutrophils 84.8 % (42.0-75.0); Hemoglobin 12.8 g/dL (12.0-16.0); Mean Corpuscular HGB CONC 31.3 g/dL (32.0-36.0); Mean Corpuscular Hemoglobin 27.4 pg (27.0-31.0); Mean Corpuscular Volume 87.5 fL (78.0-98.0); Mean Platelet Volume 8.4 fL (7.4-10.4); Platelet Count 244 thou/uL (130-400); RBC Distribution Width 14.5 % (11.5-14.5); Red Blood Cell (RBC) Count 4.67 mill/uL (4.20-5.40); White Blood Cell (WBC) Count 13.8 thou/uL (4.8-10.8)
[2021-02-26 05:43] LABS: ALT (SGPT) 82 U/L (8-55); AST (SGOT) 13 U/L (5-34); Albumin 3.2 g/dL (3.5-5.0); Alkaline Phosphatase 93 U/L (40-110); Anion Gap 13 mmol/L (10-20); BUN (Urea Nitrogen) 18 mg/dL (9.8-20.1); Bilirubin, Total 0.7 mg/dL (0.2-1.2); Calc. Creatinine Clearance 172 mL/min (70-130); Calcium 8.9 mg/dL (7.8-10.44); Carbon Dioxide 25 mmol/L (22-29); Chloride 103 mmol/L (98-107); Globulin 3.1 g/dL (2.4-3.5); Glucose 183 mg/dL (70-105); Magnesium 1.9 mg/dL (1.6-2.6); Potassium 4.3 mmol/L (3.5-5.1); Protein, Total 6.3 g/dL (6.0-8.3); Sodium 137 mmol/L (136-145)
[2021-02-26] MEDS: Insulin Regular 300 UNITS/3 ML VIAL SC PRN ×4 (06:00→20:41)
[2021-02-26] MEDS: Apixaban 5 MG TAB PO SCH ×2 (08:56→20:32)
[2021-02-26] MEDS: Aspirin 81 mg Enteric Coated Tablet PO SCH (08:56)
[2021-02-26] MEDS: Pantoprazole 40 MG VIAL IVP SCH ×2 (08:56→20:33)
[2021-02-26] MEDS: Dexamethasone 10 MG/ML VIAL SLOW IVP SCH (08:57)
[2021-02-26] MEDS: NIFEdipine XL 60 MG TAB PO SCH (09:00)
[2021-02-26] MEDS ORDERED: Albuterol 200 PUFF (6.7GM INHALER) INH PRN (10:50)
[2021-02-26] MEDS ORDERED: Magnesium 2 GM/50 ML 2 GM in Premix Bag 1 BAG IVPB SCH (13:15)
[2021-02-26] MEDS: Albuterol 200 PUFF (6.7GM INHALER) INH SCH ×3 (14:57→20:33)
[2021-02-27] MEDS: Albuterol 200 PUFF (6.7GM INHALER) INH SCH ×6 (02:30→20:36)
[2021-02-27] MEDS: Acetaminophen 325 MG TAB PO PRN ×2 (04:13→20:36)
[2021-02-27] MEDS: Insulin Regular 300 UNITS/3 ML VIAL SC PRN ×4 (06:06→20:36)
[2021-02-27] MEDS: Lisinopril 20 MG TAB PO SCH ×2 (08:34→09:20)
[2021-02-27] MEDS: Aspirin 81 mg Enteric Coated Tablet PO SCH (08:34)
[2021-02-27] MEDS: Pantoprazole 40 MG VIAL IVP SCH ×2 (08:35→20:35)
[2021-02-27] MEDS: Dexamethasone 10 MG/ML VIAL SLOW IVP SCH (08:35)
[2021-02-27] MEDS: Apixaban 5 MG TAB PO SCH ×2 (09:06→20:35)
[2021-02-28] MEDS: Albuterol 200 PUFF (6.7GM INHALER) INH SCH ×4 (02:45→16:30)
[2021-02-28] MEDS: Acetaminophen 325 MG TAB PO PRN ×3 (03:30→21:29)
[2021-02-28] MEDS ORDERED: Lantus 1000 UNITS/10 ML VIAL SC SCH (09:00)
[2021-02-28] MEDS: Aspirin 81 mg Enteric Coated Tablet PO SCH (09:17)
[2021-02-28] MEDS: Apixaban 5 MG TAB PO SCH ×2 (09:20→21:27)
[2021-02-28] MEDS: Lisinopril 20 MG TAB PO SCH (09:20)
[2021-02-28] MEDS: Dexamethasone 1 MG TAB PO SCH (09:21)
[2021-02-28] MEDS: Pantoprazole 40 MG VIAL IVP SCH ×2 (09:21→21:30)
[2021-02-28] MEDS: Insulin Regular 300 UNITS/3 ML VIAL SC PRN ×3 (12:33→21:36)
[2021-02-28] MEDS ORDERED: Sodium Chloride 0.65% Nasal 44 ML BOT EA NARE PRN (14:39)
[2021-02-28] MEDS ORDERED: MEROPENEM 1 GM/50 ML 1 GM in Premix Bag 1 BAG IVPB SCH (15:30)
[2021-02-28 16:02] LABS: #Lymphocytes 0.6 thou/uL (1.20-3.40); #Monocytes 0.1 thou/uL (0.11-0.59); #Neutrophils 13.1 thou/uL (1.40-6.50); %Eosinophils 0.1 % (0.0-10.0); %Lymphocytes 4.3 % (21.0-51.0); %Monocytes 0.7 % (0.0-10.0); Hemoglobin 12.9 g/dL (12.0-16.0); Mean Corpuscular HGB CONC 32.8 g/dL (32.0-36.0); Mean Corpuscular Hemoglobin 28.7 pg (27.0-31.0); Mean Corpuscular Volume 87.5 fL (78.0-98.0); Mean Platelet Volume 7.9 fL (7.4-10.4); Platelet Count 291 thou/uL (130-400); RBC Distribution Width 14.4 % (11.5-14.5); White Blood Cell (WBC) Count 13.7 thou/uL (4.8-10.8)
[2021-02-28 16:20] LABS: Anion Gap 14 mmol/L (10-20); BUN (Urea Nitrogen) 18 mg/dL (9.8-20.1); Calc. Creatinine Clearance 123 mL/min (70-130); Calcium 8.4 mg/dL (7.8-10.44); Carbon Dioxide 22 mmol/L (22-29); Chloride 103 mmol/L (98-107); Glucose 381 mg/dL (70-105); Potassium 4.7 mmol/L (3.5-5.1); Sodium 134 mmol/L (136-145)
[2021-02-28 19:29] LABS: Bacteria/HPF 4+ HPF (None Seen); Bilirubin Negative (Negative); Blood, Urine 2+ (Negative); Clarity Clear (Clear); Glucose, Urine (Dipstick) 500 mg/dL (Negative); Ketone, Urine Negative (Negative); Leukocyte 250 Leu/uL (Negative); Nitrite Negative (Negative); Protein, Urine (Dipstick) 10 mg/dL (Neg-Trace); RBC/HPF 0-3 HPF (0-3); Specific Gravity, Urine 1.015 (1.002-1.036); Squamous Epithelial 0-3 HPF (0-3); Urobilinogen 3 mg/dL (Less than 2); pH, Urine 5.5 (5.0-9.0)
[2021-02-28] MEDS: guaiFENesin ER 600 MG TAB PO SCH ×2 (21:28→21:58)
[2021-02-28] MEDS: Lantus 1000 UNITS/10 ML VIAL SC SCH (21:37)
[2021-02-28] MEDS: MEROPENEM 1 GM/50 ML 1 GM in Premix Bag 1 BAG IVPB SCH (23:08)
[2021-03-01] MEDS: guaiFENesin ER 600 MG TAB PO SCH ×3 (04:07→20:28)
[2021-03-01] MEDS: MEROPENEM 1 GM/50 ML 1 GM in Premix Bag 1 BAG IVPB SCH ×2 (08:34→17:39)
[2021-03-01] MEDS: Apixaban 5 MG TAB PO SCH ×2 (08:35→20:26)
[2021-03-01] MEDS: Lisinopril 20 MG TAB PO SCH (08:35)
[2021-03-01] MEDS: Aspirin 81 mg Enteric Coated Tablet PO SCH (08:35)
[2021-03-01] MEDS: Dexamethasone 1 MG TAB PO SCH (08:36)
[2021-03-01] MEDS: Pantoprazole 40 MG VIAL IVP SCH ×2 (08:36→20:23)
[2021-03-01] MEDS: Lantus 1000 UNITS/10 ML VIAL SC SCH ×2 (08:37→21:21)
[2021-03-01 11:52] LABS: Hemoglobin 13.4 g/dL (12.0-16.0); Mean Corpuscular HGB CONC 32.6 g/dL (32.0-36.0); Mean Corpuscular Hemoglobin 28.6 pg (27.0-31.0); Mean Corpuscular Volume 87.9 fL (78.0-98.0); Mean Platelet Volume 7.7 fL (7.4-10.4); Platelet Count 310 thou/uL (130-400); RBC Distribution Width 14.6 % (11.5-14.5); Red Blood Cell (RBC) Count 4.67 mill/uL (4.20-5.40); White Blood Cell (WBC) Count 17.6 thou/uL (4.8-10.8)
[2021-03-01 12:20] LABS: Anion Gap 16 mmol/L (10-20); BUN (Urea Nitrogen) 17 mg/dL (9.8-20.1); Calc. Creatinine Clearance 144 mL/min (70-130); Calcium 8.7 mg/dL (7.8-10.44); Carbon Dioxide 25 mmol/L (22-29); Chloride 103 mmol/L (98-107); Glucose 214 mg/dL (70-105); Potassium 4.9 mmol/L (3.5-5.1); Sodium 139 mmol/L (136-145)
[2021-03-01] MEDS: Insulin Regular 300 UNITS/3 ML VIAL SC PRN ×2 (12:34→16:31)
[2021-03-01] MEDS: Acetaminophen 325 MG TAB PO PRN (12:35)
[2021-03-01 12:36] LABS: Band 3 % (5-11); Lymphocytes 5 % (21-51); Neutrophil 92 % (42-75)
[2021-03-01 12:37] LABS: MDiff Complete? YES
[2021-03-01] MEDS ORDERED: Vancomycin 1 GM in Premix Bag 1 BAG IVPB SCH (13:15)
[2021-03-01] MEDS ORDERED: Micafungin 100 MG in Sodium Chloride 0.9% 100 ML IVPB SCH ×2 (16:00→21:00)
[2021-03-01] MEDS: Vancomycin 1 GM in Premix Bag 1 BAG IVPB SCH (16:18)
[2021-03-01] MEDS: methylPREDNISolone Sod Succ/PF 125 MG/2 ML VIAL IVP SCH (17:41)
[2021-03-01] MEDS: Lorazepam 2 MG/ML VIAL SLOW IVP PRN (22:54)
[2021-03-02] MEDS: MEROPENEM 1 GM/50 ML 1 GM in Premix Bag 1 BAG IVPB SCH ×3 (00:01→15:43)
[2021-03-02] MEDS: methylPREDNISolone Sod Succ/PF 125 MG/2 ML VIAL IVP SCH (00:02)
[2021-03-02 01:34] LABS: Actual Bicarbonate (HCO3a) 23.1 mEq/L (22-28); Base Excess (BEa) -0.4 mEq/L (-2.0 to +3.0); CO2 Tension 34.4 mmHg (35.0-45.0); Calcium, Ionized (arterial) 1.16 mmol/L (1.12-1.30); Carboxyhemoglobin (COHb) 0.8 gm% (0.0-3.0); Hemoglobin (Hb) 13.8 g/dL (12.0-16.0); Potassium - ABG Lab 4.61 mmol/L (3.70-5.30); pH, Arterial 7.45 (7.35-7.45)
[2021-03-02 01:36] LABS: O2 Tension (PaO2), arterial 42.6 mmHg (80.0-100.0)
[2021-03-02 01:37] LABS: Puncture Site RRA
[2021-03-02] MEDS: Vancomycin 1 GM in Premix Bag 1 BAG IVPB SCH ×3 (04:28→15:43)
[2021-03-02 05:59] LABS: Hemoglobin 13.5 g/dL (12.0-16.0); Mean Corpuscular HGB CONC 30.4 g/dL (32.0-36.0); Mean Corpuscular Hemoglobin 26.9 pg (27.0-31.0); Mean Corpuscular Volume 88.5 fL (78.0-98.0); Mean Platelet Volume 7.5 fL (7.4-10.4); Platelet Count 276 thou/uL (130-400); RBC Distribution Width 14.6 % (11.5-14.5); Red Blood Cell (RBC) Count 5.01 mill/uL (4.20-5.40); White Blood Cell (WBC) Count 20.6 thou/uL (4.8-10.8)
[2021-03-02 06:12] LABS: ALT (SGPT) 66 U/L (8-55); AST (SGOT) 29 U/L (5-34); Albumin 3.1 g/dL (3.5-5.0); Alkaline Phosphatase 235 U/L (40-110); Anion Gap 16 mmol/L (10-20); BUN (Urea Nitrogen) 19 mg/dL (9.8-20.1); Bilirubin, Total 0.9 mg/dL (0.2-1.2); Calc. Creatinine Clearance 158 mL/min (70-130); Calcium 8.6 mg/dL (7.8-10.44); Carbon Dioxide 25 mmol/L (22-29); Chloride 103 mmol/L (98-107); Globulin 3.5 g/dL (2.4-3.5); Glucose 210 mg/dL (70-105); Magnesium 2.1 mg/dL (1.6-2.6); Potassium 4.8 mmol/L (3.5-5.1); Protein, Total 6.6 g/dL (6.0-8.3); Sodium 139 mmol/L (136-145)
[2021-03-02] MEDS: Lorazepam 2 MG/ML VIAL SLOW IVP PRN ×4 (06:20→22:21)
[2021-03-02] MEDS: methylPREDNISolone Sod Succ 40 MG VIAL IVP SCH ×3 (06:22→18:05)
[2021-03-02 06:40] LABS: Band 7 % (5-11); Lymphocytes 2 % (21-51); MDiff Complete? YES; Monocytes 1 % (0-10); Neutrophil 90 % (42-75)
[2021-03-02] MEDS ORDERED: Succinylcholine 200 MG/10 ml SYRINGE FS ONE (07:17)
[2021-03-02] MEDS ORDERED: PROPOFOL 200 MG/20 ML VIAL ONE (07:17)
[2021-03-02] MEDS: Propofol 1,000 MG/100 ML VIAL IV ONE ×2 (07:20→19:45)
[2021-03-02] MEDS ORDERED: Vecuronium 10 MG VIAL ONE (07:46)
[2021-03-02] MEDS ORDERED: Metoprolol Tartrate 5 MG/5 ML VIAL ONE ×2 (08:03→22:11)
[2021-03-02] MEDS ORDERED: Furosemide 40 MG/4 ML VIAL ONE ×2 (08:08→16:30)
[2021-03-02] MEDS ORDERED: fentaNYL Citrate/PF 2,000 MCG in Sodium Chloride 0.9% 60 ML IV PRN (08:33)
[2021-03-02] MEDS ORDERED: Furosemide 40 MG/4 ML VIAL SLOW IVP SCH (08:45)
[2021-03-02] MEDS ORDERED: Metoprolol Tartrate 5 MG/5 ML VIAL IVP SCH (08:45)
[2021-03-02] MEDS ORDERED: Propofol 1,000 MG/100 ML VIAL IV SCH (08:45)
[2021-03-02] MEDS ORDERED: Ventilator Sedation Protocol 1 EACH FS SCH (08:45)
[2021-03-02] MEDS: Norepinephrine 8 MG/0.9% NS 250 ML ONE ×2 (08:47→08:50)
[2021-03-02] MEDS ORDERED: Dextrose 50% Abboject 50 ML SYRINGE ONE (09:08)
[2021-03-02] MEDS ORDERED: EPINEPHrine 1 MG/10 ML Abboject SYRINGE ONE (09:14)
[2021-03-02 09:22] LABS: Actual Bicarbonate (HCO3a) 35.4 mEq/L (22-28); Base Excess (BEa) 2.4 mEq/L (-2.0 to +3.0); Calcium, Ionized (arterial) 1.01 mmol/L (1.12-1.30); Carboxyhemoglobin (COHb) 0.3 gm% (0.0-3.0); Hemoglobin (Hb) 10.7 g/dL (12.0-16.0); Potassium - ABG Lab 7.54 mmol/L (3.70-5.30)
[2021-03-02 09:23] LABS: CO2 Tension 126.9 mmHg (35.0-45.0); O2 Tension (PaO2), arterial 52.2 mmHg (80.0-100.0); pH, Arterial 7.06 (7.35-7.45)
[2021-03-02 09:24] LABS: ALV-art Gradient 497.175 mmHg (0-20); Puncture Site Arterial Line
[2021-03-02] MEDS ORDERED: Sodium Bicarbonate 150 MEQ in Dextrose 5% in Water 1,000 ML IV SCH ×2 (09:30→19:45)
[2021-03-02] MEDS: Apixaban 5 MG TAB PO SCH ×2 (10:22→20:19)
[2021-03-02] MEDS: Aspirin Chewable 81 MG TAB PO SCH (10:22)
[2021-03-02] MEDS: Lantus 1000 UNITS/10 ML VIAL SC SCH ×2 (10:23→21:15)
[2021-03-02] MEDS: guaiFENesin ER 600 MG TAB PO SCH (10:23)
[2021-03-02] MEDS: Pantoprazole 40 MG VIAL IVP SCH ×2 (10:23→20:28)
[2021-03-02] MEDS: Lisinopril 20 MG TAB PO SCH (10:23)
[2021-03-02 10:57] LABS: Troponin I 0.105 ng/mL (< 0.028)
[2021-03-02 11:08] LABS: Hemoglobin 10.8 g/dL (12.0-16.0); Mean Corpuscular HGB CONC 31.1 g/dL (32.0-36.0); Mean Corpuscular Hemoglobin 28.6 pg (27.0-31.0); Mean Corpuscular Volume 92.2 fL (78.0-98.0); Mean Platelet Volume 7.6 fL (7.4-10.4); Platelet Count 175 thou/uL (130-400); RBC Distribution Width 14.4 % (11.5-14.5); Red Blood Cell (RBC) Count 3.79 mill/uL (4.20-5.40); White Blood Cell (WBC) Count 24.3 thou/uL (4.8-10.8)
[2021-03-02 11:09] LABS: Band 4 % (5-11); Lymphocytes 7 % (21-51); MDiff Complete? YES; Monocytes 2 % (0-10); Neutrophil 87 % (42-75); Platelet Morphology Comment Appears Adequate; RBC Morphology Normal
[2021-03-02 11:10] LABS: Anion Gap 27 mmol/L (10-20); BUN (Urea Nitrogen) 21 mg/dL (9.8-20.1); Calc. Creatinine Clearance 78 mL/min (70-130); Calcium 7.9 mg/dL (7.8-10.44); Carbon Dioxide 19 mmol/L (22-29); Chloride 104 mmol/L (98-107); Glucose 290 mg/dL (70-105); Potassium 6.4 mmol/L (3.5-5.1); Sodium 144 mmol/L (136-145)
[2021-03-02] MEDS ORDERED: Sodium Chloride 0.9% 500 ML IV SCH (11:15)
[2021-03-02] MEDS ORDERED: Sodium Bicarb 50 MEQ/50 ML Abboject 8.4% SYRINGE IVP SCH ×2 (11:15→13:45)
[2021-03-02] MEDS ORDERED: Calcium Gluconate 4.6 MEQ in Sodium Chloride 0.9% 100 ML IVPB SCH (11:30)
[2021-03-02] MEDS ORDERED: Norepinephrine 8 MG/0.9% NS 250 ML ONE (11:58)
[2021-03-02] MEDS ORDERED: Lorazepam 2 MG/ML VIAL SLOW IVP PRN (12:50)
[2021-03-02] MEDS ORDERED: Calcium Chloride 1 GM/10 ML Abboject SYRINGE IVP SCH (13:45)
[2021-03-02 15:08] LABS: Troponin I 0.657 ng/mL (< 0.028)
[2021-03-02 15:27] LABS: Anion Gap 28 mmol/L (10-20); BUN (Urea Nitrogen) 26 mg/dL (9.8-20.1); Calc. Creatinine Clearance 61 mL/min (70-130); Calcium 9.1 mg/dL (7.8-10.44); Carbon Dioxide 18 mmol/L (22-29); Chloride 103 mmol/L (98-107); Glucose 327 mg/dL (70-105); Potassium 6.2 mmol/L (3.5-5.1); Sodium 143 mmol/L (136-145)
[2021-03-02] MEDS: Norepinephrine 8 MG/0.9% NS 250 ML IVPB SCH ×2 (15:33→17:33)
[2021-03-02] MEDS: Insulin Regular 300 UNITS/3 ML VIAL SC PRN ×3 (15:34→21:30)
[2021-03-02] MEDS ORDERED: Albumin 25% 25 GM/100 ML BOT IVPB SCH (16:00)
[2021-03-02] MEDS ORDERED: MEROPENEM 1 GM/50 ML 1 GM in Premix Bag 1 BAG IVPB SCH (17:00)
[2021-03-02] MEDS ORDERED: Vancomycin 1 GM in Premix Bag 1 BAG IVPB SCH (17:00)
[2021-03-02] MEDS ORDERED: Fentanyl 100 MCG/2 ML VIAL ONE (17:09)
[2021-03-02 17:16] LABS: Anion Gap 31 mmol/L (10-20); BUN (Urea Nitrogen) 29 mg/dL (9.8-20.1); Calc. Creatinine Clearance 59 mL/min (70-130); Calcium 8.6 mg/dL (7.8-10.44); Carbon Dioxide 17 mmol/L (22-29); Chloride 103 mmol/L (98-107); Glucose 358 mg/dL (70-105); Sodium 144 mmol/L (136-145)
[2021-03-02 17:30] LABS: Potassium 6.6 mmol/L (3.5-5.1); Troponin I 1.034 ng/mL (< 0.028)
[2021-03-02] MEDS ORDERED: Fentanyl 100 MCG/2 ML VIAL SLOW IVP SCH (17:45)
[2021-03-02] MEDS ORDERED: Insulin Regular 300 UNITS/3 ML VIAL IVP SCH (17:45)
[2021-03-02] MEDS ORDERED: Dextrose 50% Abboject 50 ML SYRINGE SLOW IVP PRN (17:45)
[2021-03-02] MEDS: Sodium Bicarbonate 150 MEQ in Dextrose 5% in Water 1,000 ML IV SCH (20:16)
[2021-03-02] MEDS: Norepinephrine 16 MG in Dextrose 5% in Water 234 ML IVPB SCH (20:29)
[2021-03-02] MEDS: Acetaminophen 325 MG TAB PO PRN (23:55)
[2021-03-03] MEDS ORDERED: MEROPENEM 1 GM/50 ML 1 GM in Premix Bag 1 BAG IVPB SCH (01:00)
[2021-03-03] MEDS: methylPREDNISolone Sod Succ 40 MG VIAL IVP SCH ×5 (02:46→23:02)
[2021-03-03] MEDS: Norepinephrine 16 MG in Dextrose 5% in Water 234 ML IVPB SCH ×3 (02:46→23:02)
[2021-03-03] MEDS: Lorazepam 2 MG/ML VIAL SLOW IVP PRN ×10 (03:40→23:38)
[2021-03-03] MEDS: Insulin Regular 300 UNITS/3 ML VIAL SC PRN ×3 (04:36→11:53)
[2021-03-03] MEDS: Acetaminophen 325 MG TAB PO PRN ×3 (04:54→18:08)
[2021-03-03] MEDS: Sodium Bicarbonate 150 MEQ in Dextrose 5% in Water 1,000 ML IV SCH (06:26)
[2021-03-03] MEDS ORDERED: Propofol BOLUS 1,000 MG/100 ML VIAL IV PRN (07:00)
[2021-03-03] MEDS ORDERED: Fentanyl BOLUS 250 ML IVPB PRN (07:00)
[2021-03-03] MEDS: Aspirin Chewable 81 MG TAB PO SCH (07:23)
[2021-03-03] MEDS: Apixaban 5 MG TAB PO SCH (07:23)
[2021-03-03] MEDS: Pantoprazole 40 MG VIAL IVP SCH ×2 (07:23→20:44)
[2021-03-03] MEDS: Propofol 1,000 MG/100 ML VIAL IV PRN ×5 (07:27→18:08)
[2021-03-03 07:44] LABS: Base Excess (BEa) 2.1 mEq/L (-2.0 to +3.0); CO2 Tension 55.9 mmHg (35.0-45.0); Calcium, Ionized (arterial) 0.86 mmol/L (1.12-1.30); Carboxyhemoglobin (COHb) 0.6 gm% (0.0-3.0); Hemoglobin (Hb) 12.4 g/dL (12.0-16.0); O2 Tension (PaO2), arterial 63.7 mmHg (80.0-100.0); Potassium - ABG Lab 5.92 mmol/L (3.70-5.30); pH, Arterial 7.33 (7.35-7.45)
[2021-03-03] MEDS: Lantus 1000 UNITS/10 ML VIAL SC SCH (08:13)
[2021-03-03 08:18] LABS: Puncture Site Arterial Line
[2021-03-03 08:19] LABS: ALV-art Gradient 579.425 mmHg (0-20)
[2021-03-03 08:49] LABS: Hemoglobin 12.1 g/dL (12.0-16.0); Mean Corpuscular HGB CONC 32.7 g/dL (32.0-36.0); Mean Corpuscular Hemoglobin 29.3 pg (27.0-31.0); Mean Corpuscular Volume 89.5 fL (78.0-98.0); Mean Platelet Volume 9.5 fL (7.4-10.4); Platelet Count 149 thou/uL (130-400); RBC Distribution Width 14.5 % (11.5-14.5); Red Blood Cell (RBC) Count 4.13 mill/uL (4.20-5.40); White Blood Cell (WBC) Count 15.7 thou/uL (4.8-10.8)
[2021-03-03 09:02] LABS: Vancomycin, Trough 2.5 ug/mL
[2021-03-03 09:09] LABS: Albumin 2.9 g/dL (3.5-5.0); Alkaline Phosphatase 288 U/L (40-110); Anion Gap 20 mmol/L (10-20); BUN (Urea Nitrogen) 50 mg/dL (9.8-20.1); Calc. Creatinine Clearance 41 mL/min (70-130); Calcium 6.8 mg/dL (7.8-10.44); Carbon Dioxide 29 mmol/L (22-29); Chloride 96 mmol/L (98-107); Glucose 579 mg/dL (70-105); Magnesium 2.4 mg/dL (1.6-2.6); Phosphorus 7.9 mg/dL (2.3-4.7); Potassium 6.2 mmol/L (3.5-5.1); Protein, Total 5.9 g/dL (6.0-8.3); Sodium 139 mmol/L (136-145)
[2021-03-03 09:16] LABS: ALT (SGPT) 9968 U/L (8-55)
[2021-03-03 09:18] LABS: Band 21 % (5-11); Lymphocytes 3 % (21-51); MDiff Complete? YES; Monocytes 1 % (0-10); Neutrophil 74 % (42-75); Nucleated RBC 1 % (0); Platelet Morphology Comment Appears Adequate; RBC Morphology Normal; Reactive Lymphocytes 1 % (0-10)
[2021-03-03 09:31] LABS: AST (SGOT) Greater than 3500 U/L (5-34)
[2021-03-03 09:39] VITALS: BMI 47.7
[2021-03-03] MEDS: Morphine 2 MG/ML VIAL SLOW IVP PRN ×3 (12:43→18:08)
[2021-03-03 14:06] LABS: Bilirubin, Total 3.9 mg/dL (0.2-1.2); Calcium 6.5 mg/dL (7.8-10.44); Chloride 97 mmol/L (98-107); Potassium 6.2 mmol/L (3.5-5.1); Sodium 141 mmol/L (136-145)
[2021-03-03] MEDS ORDERED: Meropenem 500 MG in Sodium Chloride 0.9% 100 ML IVPB SCH ×2 (14:30→17:00)
[2021-03-03 14:41] LABS: Albumin 2.9 g/dL (3.5-5.0); Alkaline Phosphatase 321 U/L (40-110); BUN (Urea Nitrogen) 54 mg/dL (9.8-20.1); Calc. Creatinine Clearance 34 mL/min (70-130); Carbon Dioxide 25 mmol/L (22-29); Globulin 3.1 g/dL (2.4-3.5)
[2021-03-03 14:50] LABS: Glucose 555 mg/dL (70-105)
[2021-03-03] MEDS ORDERED: Lantus 1000 UNITS/10 ML VIAL SC SCH ×3 (14:52→16:15)
[2021-03-03] MEDS ORDERED: Linezolid 600 MG in Premix Bag 1 BAG IVPB SCH (15:00)
[2021-03-03 15:17] LABS: Anion Gap 25 mmol/L (10-20)
[2021-03-03 15:48] LABS: ALT (SGPT) 9719 U/L (8-55)
[2021-03-03] MEDS ORDERED: Calcium Gluconate 9.2 MEQ in Sodium Chloride 0.9% 100 ML IVPB SCH ×2 (16:15→21:30)
[2021-03-03] MEDS ORDERED: Calcium Gluconate 9.2 MEQ in Sodium Chloride 0.9% 200 ML IVPB SCH (16:30)
[2021-03-03] MEDS ORDERED: Insulin Regular 300 UNITS/3 ML VIAL IVP SCH ×2 (16:45→21:30)
[2021-03-03] MEDS: Albumin 25% 25 GM/100 ML BOT IVPB SCH ×2 (16:58→23:01)
[2021-03-03] MEDS: Micafungin 100 MG in Sodium Chloride 0.9% 100 ML IVPB SCH (17:36)
[2021-03-03] MEDS: HUMULIN R 100 UNITS in Sodium Chloride 0.9% 100 ML IVPB SCH (18:09)
[2021-03-03] MEDS ORDERED: Vancomycin HCl 1.5 GM in Sodium Chloride 0.9% 250 ML 300 ML IVPB SCH (20:00)
[2021-03-03 20:38] LABS: Calcium 6.3 mg/dL (7.8-10.44); Chloride 97 mmol/L (98-107); Glucose 528 mg/dL (70-105); Potassium 5.4 mmol/L (3.5-5.1); Sodium 139 mmol/L (136-145)
[2021-03-03 20:40] LABS: Anion Gap 24 mmol/L (10-20); Carbon Dioxide 23 mmol/L (22-29)
[2021-03-03 20:42] LABS: Calc. Creatinine Clearance 29 mL/min (70-130)
[2021-03-03 20:43] LABS: BUN (Urea Nitrogen) 62 mg/dL (9.8-20.1)
[2021-03-03] MEDS ORDERED: Apixaban 5 MG TAB PO SCH (21:00)
[2021-03-03] MEDS ORDERED: Adenosine 6 MG/2 ML VIAL ONE (23:17)
[2021-03-03] MEDS ORDERED: Adenosine 6 MG/2 ML VIAL IVP SCH (23:45)
[2021-03-04 00:10] LABS: BUN (Urea Nitrogen) 63 mg/dL (9.8-20.1); Calc. Creatinine Clearance 28 mL/min (70-130); Calcium 6.6 mg/dL (7.8-10.44); Carbon Dioxide 22 mmol/L (22-29); Chloride 99 mmol/L (98-107); Glucose 456 mg/dL (70-105); Potassium 4.9 mmol/L (3.5-5.1); Sodium 141 mmol/L (136-145)
[2021-03-04 00:16] LABS: Anion Gap 26 mmol/L (10-20)
[2021-03-04 00:28] LABS: Bilirubin 1+ (Negative); Blood, Urine 3+ (Negative); Clarity Turbid (Clear); Glucose, Urine (Dipstick) 500 mg/dL (Negative); Ketone, Urine Negative (Negative); Leukocyte Negative Leu/uL (Negative); Nitrite Negative (Negative); Protein, Urine (Dipstick) 100 mg/dL (Neg-Trace); Specific Gravity, Urine 1.026 (1.002-1.036); Squamous Epithelial 0-3 HPF (0-3)
[2021-03-04 00:36] LABS: Bacteria/HPF 1+ HPF (None Seen)
[2021-03-04] MEDS: Meropenem 500 MG in Sodium Chloride 0.9% 100 ML IVPB SCH ×2 (00:50→12:35)
[2021-03-04] MEDS ORDERED: Vasopressin 20 UNIT, Admixture Fee 1 EACH in Sodium Chloride 0.9% 50 ML IV SCH (01:15)
[2021-03-04 01:18] LABS: Actual Bicarbonate (HCO3a) 22.9 mEq/L (22-28); Base Excess (BEa) -1.8 mEq/L (-2.0 to +3.0); CO2 Tension 38.8 mmHg (35.0-45.0); Carboxyhemoglobin (COHb) 0.1 gm% (0.0-3.0); Hemoglobin (Hb) 11.6 g/dL (12.0-16.0); Potassium - ABG Lab 5.99 mmol/L (3.70-5.30); pH, Arterial 7.39 (7.35-7.45)
[2021-03-04] MEDS: Diltiazem HCl 125 MG, Admixture Fee 1 EACH in Sodium Chloride 0.9% 100 ML IVPB SCH ×2 (01:21→15:35)
[2021-03-04 01:25] LABS: O2 Tension (PaO2), arterial 55.7 mmHg (80.0-100.0)
[2021-03-04 01:26] LABS: Puncture Site RRA
[2021-03-04] MEDS: Morphine 2 MG/ML VIAL SLOW IVP PRN ×2 (02:09→20:34)
[2021-03-04 02:29] LABS: Magnesium 2.2 mg/dL (1.6-2.6)
[2021-03-04 02:58] LABS: Troponin I 1.079 ng/mL (< 0.028)
[2021-03-04] MEDS: Propofol 1,000 MG/100 ML VIAL IV PRN ×5 (04:05→15:25)
[2021-03-04] MEDS: methylPREDNISolone Sod Succ 40 MG VIAL IVP SCH ×3 (05:11→17:48)
[2021-03-04 05:28] LABS: Band 5 % (5-11); Hemoglobin 11.2 g/dL (12.0-16.0); Lymphocytes 4 % (21-51); MDiff Complete? YES; Mean Corpuscular HGB CONC 34.5 g/dL (32.0-36.0); Mean Corpuscular Hemoglobin 29.8 pg (27.0-31.0); Mean Corpuscular Volume 86.4 fL (78.0-98.0); Mean Platelet Volume 9.4 fL (7.4-10.4); Metamyelocyte 2 % (0-0); Monocytes 1 % (0-10); Neutrophil 88 % (42-75); Nucleated RBC 3 % (0); Platelet Count 140 thou/uL (130-400); Platelet Morphology Comment Appears Adequate; RBC Distribution Width 14.3 % (11.5-14.5); RBC Morphology Normal; Red Blood Cell (RBC) Count 3.75 mill/uL (4.20-5.40); White Blood Cell (WBC) Count 18.8 thou/uL (4.8-10.8)
[2021-03-04 05:31] LABS: AST (SGOT) Greater than 3500 U/L (5-34); Albumin 3.1 g/dL (3.5-5.0); Alkaline Phosphatase 345 U/L (40-110); Anion Gap 23 mmol/L (10-20); BUN (Urea Nitrogen) 68 mg/dL (9.8-20.1); Bilirubin, Total 3.8 mg/dL (0.2-1.2); Calc. Creatinine Clearance 26 mL/min (70-130); Calcium 6.4 mg/dL (7.8-10.44); Carbon Dioxide 24 mmol/L (22-29); Chloride 98 mmol/L (98-107); Globulin 2.6 g/dL (2.4-3.5); Glucose 420 mg/dL (70-105); Magnesium 2.2 mg/dL (1.6-2.6); Phosphorus 6.2 mg/dL (2.3-4.7); Potassium 4.5 mmol/L (3.5-5.1); Protein, Total 5.7 g/dL (6.0-8.3); Sodium 140 mmol/L (136-145)
[2021-03-04 05:46] LABS: ALT (SGPT) 6389 U/L (8-55)
[2021-03-04] MEDS: HUMULIN R 100 UNITS in Sodium Chloride 0.9% 100 ML IVPB SCH ×3 (06:13→20:18)
[2021-03-04] MEDS: Albumin 25% 25 GM/100 ML BOT IVPB SCH (08:06)
[2021-03-04] MEDS: Aspirin Chewable 81 MG TAB PO SCH (08:06)
[2021-03-04] MEDS: Pantoprazole 40 MG VIAL IVP SCH ×2 (08:07→20:36)
[2021-03-04] MEDS ORDERED: Enoxaparin Sodium 60 MG/0.6 ML SYRINGE SC SCH (09:00)
[2021-03-04] MEDS: Norepinephrine 16 MG in Dextrose 5% in Water 234 ML IVPB SCH (13:46)
[2021-03-04] MEDS: Micafungin 100 MG in Sodium Chloride 0.9% 100 ML IVPB SCH (18:05)
[2021-03-04] MEDS: Sodium Chloride 0.9% (PF) 10 ML VIAL FS PRN (20:36)
[2021-03-04] MEDS ORDERED: Fentanyl CADD 100 ML ONE (22:01)
[2021-03-04] MEDS: Fentanyl CADD 100 ML IV SCH (22:07)
[2021-03-05] MEDS: methylPREDNISolone Sod Succ 40 MG VIAL IVP SCH ×5 (00:45→23:03)
[2021-03-05] MEDS: Meropenem 500 MG in Sodium Chloride 0.9% 100 ML IVPB SCH ×2 (00:53→13:42)
[2021-03-05] MEDS: Norepinephrine 16 MG in Dextrose 5% in Water 234 ML IVPB SCH ×2 (01:29→12:07)
[2021-03-05] MEDS: HUMULIN R 100 UNITS in Sodium Chloride 0.9% 100 ML IVPB SCH ×2 (03:06→12:06)
[2021-03-05 04:20] LABS: Band 8 % (5-11); Hemoglobin 11.2 g/dL (12.0-16.0); Hypochromia SLIGHT = 6-15 cells (100X) (0-5/hpf); Lymphocytes 8 % (21-51); MDiff Complete? YES; Mean Corpuscular HGB CONC 33.3 g/dL (32.0-36.0); Mean Corpuscular Hemoglobin 29.2 pg (27.0-31.0); Mean Corpuscular Volume 87.7 fL (78.0-98.0); Mean Platelet Volume 9.2 fL (7.4-10.4); Metamyelocyte 2 % (0-0); Monocytes 11 % (0-10); Neutrophil 71 % (42-75); Nucleated RBC 3 % (0); Platelet Count 138 thou/uL (130-400); Platelet Morphology Comment Appears Adequate; RBC Distribution Width 14.6 % (11.5-14.5); Red Blood Cell (RBC) Count 3.84 mill/uL (4.20-5.40); White Blood Cell (WBC) Count 21.8 thou/uL (4.8-10.8)
[2021-03-05 04:23] LABS: AST (SGOT) 1532 U/L (5-34); Alkaline Phosphatase 356 U/L (40-110); Anion Gap 21 mmol/L (10-20); BUN (Urea Nitrogen) 88 mg/dL (9.8-20.1); Calc. Creatinine Clearance 19 mL/min (70-130); Carbon Dioxide 27 mmol/L (22-29); Chloride 99 mmol/L (98-107); Globulin 2.2 g/dL (2.4-3.5); Glucose 173 mg/dL (70-105); Magnesium 2.2 mg/dL (1.6-2.6); Phosphorus 7.1 mg/dL (2.3-4.7); Potassium 5.2 mmol/L (3.5-5.1); Protein, Total 5.2 g/dL (6.0-8.3); Sodium 142 mmol/L (136-145)
[2021-03-05 04:37] LABS: ALT (SGPT) 3891 U/L (8-55)
[2021-03-05 04:54] LABS: Calcium 5.9 mg/dL (7.8-10.44)
[2021-03-05] MEDS ORDERED: Calcium Gluc 4.6 MEQ/10 ML (100 MG/ML) SLOW IVP SCH (05:30)
[2021-03-05] MEDS: Diltiazem HCl 125 MG, Admixture Fee 1 EACH in Sodium Chloride 0.9% 100 ML IVPB SCH ×2 (06:34→12:06)
[2021-03-05] MEDS ORDERED: SODIUM CHLORIDE 0.9% IVPB SCH (06:45)
[2021-03-05] MEDS ORDERED: CALCIUM GLUCONATE IVPB SCH (06:45)
[2021-03-05 07:29] LABS: Actual Bicarbonate (HCO3a) 25.3 mEq/L (22-28); Base Excess (BEa) -2.8 mEq/L (-2.0 to +3.0); CO2 Tension 57.8 mmHg (35.0-45.0); Calcium, Ionized (arterial) 0.84 mmol/L (1.12-1.30); Carboxyhemoglobin (COHb) 0.6 gm% (0.0-3.0); Hemoglobin (Hb) 14.5 g/dL (12.0-16.0); O2 Tension (PaO2), arterial 60.9 mmHg (80.0-100.0); Potassium - ABG Lab 4.89 mmol/L (3.70-5.30); pH, Arterial 7.26 (7.35-7.45)
[2021-03-05 08:17] LABS: Puncture Site Arterial Line
[2021-03-05] MEDS: Aspirin Chewable 81 MG TAB PO SCH (08:59)
[2021-03-05] MEDS: Pantoprazole 40 MG VIAL IVP SCH ×2 (08:59→20:40)
[2021-03-05] MEDS ORDERED: Fentanyl CADD 100 ML ONE (15:24)
[2021-03-05] MEDS: Fentanyl CADD 100 ML IV SCH (15:27)
[2021-03-05] MEDS: Micafungin 100 MG in Sodium Chloride 0.9% 100 ML IVPB SCH (17:26)
[2021-03-05] MEDS: Lorazepam 2 MG/ML VIAL SLOW IVP PRN ×2 (20:11→22:52)
[2021-03-05] MEDS: Sodium Chloride 0.9% (PF) 10 ML VIAL FS PRN (20:40)
[2021-03-06] MEDS: Diltiazem HCl 125 MG, Admixture Fee 1 EACH in Sodium Chloride 0.9% 100 ML IVPB SCH (00:56)
[2021-03-06] MEDS: Meropenem 500 MG in Sodium Chloride 0.9% 100 ML IVPB SCH (01:12)
[2021-03-06] MEDS: Norepinephrine 16 MG in Dextrose 5% in Water 234 ML IVPB SCH (03:16)
[2021-03-06 05:14] LABS: Band 3 % (5-11); Hemoglobin 11.4 g/dL (12.0-16.0); Lymphocytes 9 % (21-51); MDiff Complete? YES; Mean Corpuscular HGB CONC 32.1 g/dL (32.0-36.0); Mean Corpuscular Hemoglobin 28.7 pg (27.0-31.0); Mean Corpuscular Volume 89.3 fL (78.0-98.0); Mean Platelet Volume 9.4 fL (7.4-10.4); Monocytes 2 % (0-10); Neutrophil 85 % (42-75); Nucleated RBC 9 % (0); Platelet Count 128 thou/uL (130-400); Platelet Morphology Comment Appears Decreased; RBC Distribution Width 14.9 % (11.5-14.5); Reactive Lymphocytes 1 % (0-10); Red Blood Cell (RBC) Count 3.98 mill/uL (4.20-5.40); White Blood Cell (WBC) Count 22.2 thou/uL (4.8-10.8)
[2021-03-06 05:23] LABS: ALT (SGPT) 2340 U/L (8-55); AST (SGOT) 440 U/L (5-34); Albumin 2.9 g/dL (3.5-5.0); Alkaline Phosphatase 337 U/L (40-110); Anion Gap 24 mmol/L (10-20); BUN (Urea Nitrogen) 113 mg/dL (9.8-20.1); Bilirubin, Total 4.2 mg/dL (0.2-1.2); Calc. Creatinine Clearance 14 mL/min (70-130); Calcium 6.1 mg/dL (7.8-10.44); Carbon Dioxide 26 mmol/L (22-29); Chloride 99 mmol/L (98-107); Globulin 2.4 g/dL (2.4-3.5); Glucose 199 mg/dL (70-105); Magnesium 2.5 mg/dL (1.6-2.6); Phosphorus 9.8 mg/dL (2.3-4.7); Potassium 6.4 mmol/L (3.5-5.1); Protein, Total 5.3 g/dL (6.0-8.3); Sodium 143 mmol/L (136-145)
[2021-03-06] MEDS ORDERED: Insulin Regular 300 UNITS/3 ML VIAL IVP SCH (06:15)
[2021-03-06] MEDS ORDERED: Dextrose 50% Abboject 50 ML SYRINGE SLOW IVP SCH (06:15)
[2021-03-06] MEDS: methylPREDNISolone Sod Succ 40 MG VIAL IVP SCH ×2 (06:26→12:59)
[2021-03-06] MEDS ORDERED: Calcium Gluconate 4.6 MEQ in Sodium Chloride 0.9% 100 ML IVPB SCH (06:30)
[2021-03-06] MEDS ORDERED: Fentanyl CADD 100 ML ONE (07:10)
[2021-03-06] MEDS: Fentanyl CADD 100 ML IV SCH (07:14)
[2021-03-06 07:52] LABS: Base Excess (BEa) -8.2 mEq/L (-2.0 to +3.0); Calcium, Ionized (arterial) 0.86 mmol/L (1.12-1.30); Potassium - ABG Lab 5.66 mmol/L (3.70-5.30)
[2021-03-06 08:24] LABS: CO2 Tension 67.1 mmHg (35.0-45.0); O2 Tension (PaO2), arterial 49.3 mmHg (80.0-100.0); Puncture Site Arterial Line; pH, Arterial 7.13 (7.35-7.45)
[2021-03-06 08:25] LABS: ALV-art Gradient 579.825 mmHg (0-20)
[2021-03-06] MEDS: Pantoprazole 40 MG VIAL IVP SCH (10:02)
[2021-03-06] MEDS: Aspirin Chewable 81 MG TAB PO SCH (10:02)
[2021-03-06 11:00] VITALS: BP 100/45
[2021-03-06 18:26] VITALS: TEMP 100
== END 2021-03-06 14:23 | disposition expired | DRG 207 ==
LOC: ERS 10:52 → ERHOLD 16:06 → IMCU/EMU 21:52 → 2SW 02-24 19:21 → IMCU/EMU 03-02 06:10 → CCU 03-05 19:53
PROVIDERS: ADMIT Internal Medicine; ATTEND Family Medicine
PROC: 3E0333Z Introduction of Anti-inflammatory into Peripheral Vein, Percutaneous Approach (ICD-10-PCS; principal; 2021-02-20)
PROC: 5A1955Z Respiratory Ventilation, Greater than 96 Consecutive Hours (ICD-10-PCS; 2021-02-20)
PROC: 8E0ZXY6 Isolation (ICD-10-PCS; 2021-02-20)
PROC: 3E033XZ Introduction of Vasopressor into Peripheral Vein, Percutaneous Approach (ICD-10-PCS; 2021-03-02)
PROC: 5A09357 Assistance with Respiratory Ventilation, Less than 24 Consecutive Hours, Continuous Positive Airway Pressure (ICD-10-PCS; 2021-03-02)
PROC: 0BH17EZ Insertion of Endotracheal Airway into Trachea, Via Natural or Artificial Opening (ICD-10-PCS; 2021-03-02)
PROC: 0DH67UZ Insertion of Feeding Device into Stomach, Via Natural or Artificial Opening (ICD-10-PCS; 2021-03-02)
PROC: 02HV33Z Insertion of Infusion Device into Superior Vena Cava, Percutaneous Approach (ICD-10-PCS; 2021-03-02)
PROC: B548ZZA Ultrasonography of Superior Vena Cava, Guidance (ICD-10-PCS; 2021-03-02)
PROC: 5A12012 Performance of Cardiac Output, Single, Manual (ICD-10-PCS; 2021-03-02)
DX: U07.1 COVID-19 (principal); J12.82 Pneumonia due to coronavirus disease 2019; I26.99 Other pulmonary embolism without acute cor pulmonale; I21.A1 Myocardial infarction type 2; J80 Acute respiratory distress syndrome; K72.00 Acute and subacute hepatic failure without coma; N17.0 Acute kidney failure with tubular necrosis; E87.2 Acidosis; I47.1 Supraventricular tachycardia; I48.92 Unspecified atrial flutter; G93.40 Encephalopathy, unspecified; Z68.42 Body mass index [BMI] 45.0-49.9, adult; Z51.5 Encounter for palliative care; Z66 Do not resuscitate; I12.9 Hypertensive chronic kidney disease with stage 1 through stage 4 chronic kidney disease, or unspecified chronic kidney disease; E66.01 Morbid (severe) obesity due to excess calories; E83.42 Hypomagnesemia; R74.01 Elevation of levels of liver transaminase levels; E87.5 Hyperkalemia; N18.2 Chronic kidney disease, stage 2 (mild); E11.22 Type 2 diabetes mellitus with diabetic chronic kidney disease; E11.65 Type 2 diabetes mellitus with hyperglycemia; T38.0X5A Adverse effect of glucocorticoids and synthetic analogues, initial encounter; I46.9 Cardiac arrest, cause unspecified; R57.8 Other shock; D72.829 Elevated white blood cell count, unspecified; I07.1 Rheumatic tricuspid insufficiency; E83.51 Hypocalcemia; Z88.5 Allergy status to narcotic agent; Z79.899 Other long term (current) drug therapy; Z98.51 Tubal ligation status; Z78.1 Physical restraint status
CPT/HCPCS: 36415; 36416; 36600; 71045; 71275; 80048; 80053; 80202; 81001; 82550; 82553; 82728; 82805; 83605; 83735; 83880; 84100; 84145; 84484; 85025; 85379; 85610; 85730; 86140; 87040; 87086; 87449; 93005; 93010; 93306; 94003; 96372; 96374; 96375; C9113; J0153; J0171; J0692; J1100; J1650; J1815; J1940; J1956; J2001; J2060; J2185; J2248; J2270; J2704; J2920; J2930; J3010; J3370; J3475; J3490; J7050; J7070; J8540; P9047; Q9967